=== PATIENT | male | born 1935 | race Caucasian/White ===

== ENCOUNTER 2017-07-17 17:43 | Inpatient (IN) ==
--- NOTE | 2017-07-17 18:31 | Emergency Department Report ---
Fall HPI - General Chief Complaint: Fall Stated Complaint: fall Time Seen by Provider: 07/17/17 18:22 Source: patient, family, EMS Mode of arrival: EMS Limitations: no limitations - History of Present Illness HPI Narrative: Patient is a 81-year-old male presents the ER for evaluation of right hip pain. Patient was going down stairs, on the last stair he missed and fell forward landing on his right hip. Patient did not his head, having no neck or back pain. Patient did however have immediate right hip pain EMS was called patient was brought to the ER for evaluation MD complaint: fall Fall from: down stairs (#) (1) Place fall occurred: home Loss of consciousness: none Prolonged down time: no Symptoms prior to fall: none Context: other (missed step) Location of injury: pelvis - Related Data Home Medications Medication Instructions Recorded Confirmed Amlodipine [Norvasc] 10 mg PO DAILY 07/17/17 07/17/17 Aspirin [Adult Low Dose Aspirin EC] 81 mg PO DAILY 07/17/17 07/17/17 Fenofibrate Nanocrystallized 48 mg PO DAILY 07/17/17 07/17/17 [Fenofibrate] Finasteride [Proscar] 5 mg PO HS 07/17/17 07/17/17 Rosuvastatin [Crestor] 5 mg PO HS 07/17/17 07/17/17 Warfarin [Coumadin] 2 mg PO .QOD 07/17/17 07/17/17 Warfarin [Coumadin] 3 mg PO .QOD 07/17/17 07/17/17 Allergies Allergy/AdvReac Type Severity Reaction Status Date / Time ezetimibe Allergy Unknown Verified 07/17/17 18:05 simvastatin Allergy Unknown Verified 07/17/17 18:05 Review of Systems Constitutional: Denies: fever, chills, weakness Eyes: Denies: eye pain, eye discharge ENT: Denies: throat pain, dental pain Cardiovascular: Denies: chest pain, palpitations, dyspnea on exertion Respiratory: Denies: cough, dyspnea, wheezes Gastrointestinal: Denies: abdominal pain, nausea, vomiting, diarrhea Genitourinary: Denies: urgency, dysuria, frequency Musculoskeletal: Reports: as per HPI. Denies: back pain Endocrine: Denies: fatigue Hematological/Lymphatic: Denies: easy bleeding PFSH Medical History Updates: Atrial fibrillation. Hypertension. BPH. Hypercholesterolemia Physical Exam - Limitations Limitations: no limitations - General General appearance: alert, in no apparent distress - Eye Eye exam: Present: PERRL, EOMI - ENT ENT exam: Present: normal oropharynx, TM's normal bilaterally - Neck Neck exam: Present: full ROM, trachea midline. Absent: tenderness - Chest Chest inspection: Present: symmetric chest wall rise. Absent: tenderness - Respiratory Respiratory exam: Present: normal lung sounds bilaterally. Absent: respiratory distress, wheezes, stridor - Cardiovascular Cardiovascular exam: Present: regular rate, irregular rhythm, normal heart sounds - Abdominal Exam Abdominal exam: Present: soft, normal bowel sounds. Absent: distention, tenderness - Back Exam Back exam: Present: full ROM. Absent: tenderness, CVA tenderness (R), CVA tenderness (L), muscle spasm - Skin Skin exam: Present: warm, dry - Neurological Exam Neurological exam: Present: alert, oriented X3 - Psychiatric Psychiatric exam: Present: normal affect, normal mood Course Vital Signs Temperature 98.2 F 07/17/17 17:51 Pulse Rate 64 07/17/17 17:51 Respiratory Rate 19 07/17/17 17:51 Blood Pressure 135/77 07/17/17 17:51 Pulse Oximetry 95 07/17/17 17:51 Temperature 98.2 F 07/17/17 17:51 Pulse Rate 64 07/17/17 17:51 Respiratory Rate 19 07/17/17 17:51 Blood Pressure 135/77 07/17/17 17:51 Pulse Oximetry 95 07/17/17 17:51 Fall - [facility] Narrative Medical decision making narrative: Patient family request Dr. Ferreira Discuss case with Dr. Ferreira, reviewed laboratories, have hospital service admit he will operate tomorrow - Medical Records Attestation: I reviewed the patient's medical records. - Lab Data Attestation: I reviewed the patient's lab results. Result diagrams: 07/17/17 18:38 07/17/17 18:38 - Radiology Data Attestation: I reviewed the patient's radiology results. Right intertrochanteric hip fracture Chest x-ray: No acute cardiopulmonary findings - EKG Data EKG #1 EKG attestation: Yes: I reviewed and interpreted this EKG. Rate: normal Rhythm: A.Fib Ectopy: PVC Interpretation: no acute changes Disposition Clinical Impression: Intertrochanteric fracture of right hip Qualifiers: Encounter type: initial encounter Fracture type: closed Fracture alignment: nondisplaced Qualified Code(s): S72.144A - Nondisplaced intertrochanteric fracture of right femur, initial encounter for closed fracture [place] [facility] [place] Condition: Stable Prescriptions: No Action Finasteride [Proscar] 5 mg PO HS Rosuvastatin [Crestor] 5 mg PO HS Fenofibrate Nanocrystallized [Fenofibrate] 48 mg PO DAILY Amlodipine [Norvasc] 10 mg PO DAILY Aspirin [Adult Low Dose Aspirin EC] 81 mg PO DAILY Warfarin [Coumadin] 3 mg PO .QOD Warfarin [Coumadin] 2 mg PO .QOD Referrals: Asa Dejesus MD [Primary Care Provider] - - Seen By: physician
--- OUTSIDE RECORDS SUMMARY | 2017-07-17 19:18 | External Medical Summary | Referral Summary ---
:1935 Author Organization [facility] Address [address] [place] [address] [place] [address] Care Team Providers Name Role Phone Asa Dejesus V Primary Care Physician Encounter VC Date(s): 07/03/16 - 07/03/16 [facility] [address] [place] [address] [place] [phone] [place] Discharge Diagnosis: BPH with obstruction/lower urinary tract symptoms Discharge Diagnosis: Elevated PSA Discharge Disposition: 01-Home or Self Care Attending Physician: Niraj Barragan MD Admitting Physician: Niraj Barragan MD Referring Physician: Asa Dejesus MD Vital Signs Most recent to oldest [Reference Range]: 1 Blood Pressure [90-140/60-90 mmHg] 122/72 mmHg (07/03/16 3:39 PM) Problem List Condition Effective Dates Status Health Status Informant Episode acute renal failure due to 08/01/09 - 02/19/14 Resolved NSAID+JENNIFER(Confirmed) Atrial fibrillation Active (disorder)(Confirmed) Benign essential hypertension Active (disorder)(Confirmed) Hx gross bladder < 02/16/15 Resolved trabeculation(Confirmed) BPH with obstruction/lower urinary Active tract symptoms(Confirmed) CKD (chronic kidney Active disease)(Confirmed) Chronic kidney disease, stage Active 3(Confirmed) Chronic kidney disease stage 3 Resolved (disorder)(Confirmed) Ac DVT/embl low ext NOS(Confirmed) Active Blood clots - 12/1999 - 02/19/14 Resolved lungs/legs(Confirmed) Venous stasis Active dermatitis(Confirmed) Warfarin Active anticoagulation(Confirmed) 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/14 Resolved anticoagul(Confirmed)1 Hypertension(Confirmed) Resolved Hypertensive heart disease without Resolved congestive heart failure (disorder)(Confirmed) Prediabetes(Confirmed) Active Erectile dysfunction(Confirmed) < 02/19/14 Resolved Irregular heart rhythm(Confirmed) Resolved Lt lower lung nodule on CT - 12/16/06 - 02/19/14 Resolved stable(Confirmed) Mixed hyperlipidemia Active (disorder)(Confirmed) Obesity(Confirmed) < 02/16/15 Resolved patient Prostatism(Confirmed) Resolved Pure < 02/19/14 Resolved hypercholesterolemia(Confirmed) Renal insufficiency(Confirmed) Resolved Chicken pox(Confirmed) < 02/19/14 Resolved 1Coumadin use Allergies, Adverse Reactions, Alerts Substance Reaction Severity Status NSAIDs Active simvastatin Active statins1 Active 1Previous intolerance of simvastatin, but he is tolerating rosuvastatin without problems. Medications amLODIPine 10 mg oral tablet See Instructions, TAKE ONE TABLET BY MOUTH DAILY, # 90 tabs, 1 Refill(s), eRx: [facility] #[id number] Start Date: 04/11/16 Status: Orderedaspirin 81 mg oral tablet 1 tabs, Oral, Daily, # 30 tabs, 0 Refill(s) Start Date: 07/11/13 Status: Orderedfenofibrate 48 mg oral tablet See Instructions, TAKE ONE TABLET BY MOUTH DAILY, # 30 tabs, 5 Refill(s), eRx: [facility] #[id number] Start Date: 05/03/16 Status: Orderedfinasteride 5 mg oral tablet See Instructions, TAKE ONE TABLET BY MOUTH EVERY NIGHT AT BEDTIME, # 30 tabs, 5 Refill(s), eRx: [facility] #[id number], TAKE ONE TABLET BY MOUTH EVERY NIGHT AT BEDTIME Start Date: 10/02/15 Status: OrderedMiscellaneous DME DME Item ORTHOTIC INSERTS FOR SHOES, See Instructions, # 2 Each, 0 Refill(s), Supply Start Date: 10/20/15 Status: Orderedrosuvastatin 5 mg oral tablet See Instructions, TAKE ONE TABLET BY MOUTH DAILY, # 30 tabs, 5 Refill(s), eRx: [facility] #[id number] Start Date: 02/29/16 Status: Orderedtamsulosin 0.4 mg oral capsule 0.4 mg 1 caps, Oral, Daily, # 30 caps, 11 Refill(s), Pharmacy: [facility] #[id number], 1 caps OralDaily,x30 days Start Date: 07/03/16 Stop Date: 06/28/17 Status: OrderedVoltaren 1% topical gel 1 barb, Topical, QID, as needed for pain, Use sparingly, be aware of increased bleeding risk, # 100 g, 0 Refill(s), Pharmacy: [facility] #[id number] Start Date: 04/17/16 Status: Orderedwarfarin 2 mg oral tablet See Instructions, TAKE 1 1/2 TABLETS (3MG) BY MOUTH THREE DAYS PER WEEK AND 1 TABLET (2MG) FOUR DAYSPER WEEK, # 102 tabs, eRx: [facility] #[id number] Start Date: 06/28/16 Status: Ordered Results No data available for this section Immunizations Given and Recorded Vaccine Date Status Refusal Reason tetanus/diphth/pertuss (Tdap) adult/adol 09/25/12 Recorded influenza virus vaccine, inactivated 10/31/15 Given influenza virus vaccine, inactivated 11/11/13 Recorded influenza virus vaccine, inactivated 10/27/12 Recorded influenza virus vaccine, live 10/27/12 Given influenza virus vaccine, live 11/27/11 Given pneumococcal 13-valent conjugate vaccine 02/22/16 Given pneumococcal 23-polyvalent vaccine 12/26/98 Recorded tetanus-diphth toxoids (Td) adult/adol 06/01/04 Given zoster vaccine live 12/04/10 Given Procedures Procedure Date Related Diagnosis Body Site Exostectomy Lt calcaneus [address] tendon Lt calcaneus 2011 Repair PB tendon Lt calcaneus 2011 L TKA [facility] 03/19/10 Colonoscopy 09/24/07 Cystoscopy and hydrodistension 01/14/07 Atrial fib. - conversion Gall Bladder Knee replacement1 1Left knee Social History Social History Type Response Smoking Status Never smoker Assessment and Plan Extracted from: Title: Office Visit Note Author: Niraj Barragan MD Date: 07/03/16 Assessment/Plan 80 yoM with BPH and elvated PSA. 1.BPH with obstruction/lower urinary tract symptoms Discussed the pathophysiology of BPH and treatment options. Cont finasteride. Will start FLomax. Explained the side effects. RTC in 6 months for uroflow PVR. 2.Elevated PSA His rise in PSA is likely due to stopping his Finasteride for 1-2 months. Discussed the screening guidelines for prostate cancer. Current AUA guidelines recommend against screening past the age of 70. Discussed the prevalence of prostate cancer. Will schedule for annual screening with PSA And AMINA in 1 year. Ordered: Prostate Specific Antigen
--- OUTSIDE RECORDS SUMMARY | 2017-07-17 19:18 | External Medical Summary | Referral Summary ---
:1935 Author Organization [facility] [address] [place] [address] Care Team Providers Name Role Phone Dmitry Rosenberg Primary Care Physician Encounter VC Date(s): 08/24/14 - 08/24/14 [facility], [address] [place] [phone] [place] Discharge Diagnosis: Atrial fibrillation Discharge Diagnosis: Mixed dyslipidemia Discharge Diagnosis: Chronic kidney disease Discharge Diagnosis: Hypertension, essential Discharge Disposition: 01-Home or Self Care Attending Physician: Seymour Goodrich MD Admitting Physician: Seymour Goodrich MD Referring Physician: Dmitry Rosenberg MD Vital Signs Most recent to oldest [Reference Range]: 1 Peripheral Pulse Rate [60-100 bpm] 72 bpm (08/24/14 2:41 PM) Blood Pressure [90-140/60-90 mmHg] 122/80 mmHg (08/24/14 2:41 PM) Problem List Condition Effective Dates Status Health Status Informant Episode acute renal failure due to 08/01/09 Active NSAID+JENNIFER(Confirmed) Instability of right ankle Active joint(Confirmed) Atrial fibrillation Active (disorder)(Confirmed) Benign essential hypertension Active (disorder)(Confirmed) Hx gross bladder Active trabeculation(Confirmed) Chronic kidney disease stage 3 Active (disorder)(Confirmed) Ac DVT/embl low ext NOS(Confirmed) Active Blood clots - lungs/legs(Confirmed) 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)1 Active Hypertension(Confirmed) Resolved Hypertensive heart disease without Active congestive heart failure (disorder)(Confirmed) Prediabetes(Confirmed) Active Erectile dysfunction(Confirmed) Active Irregular heart rhythm(Confirmed) Resolved Lt lower lung nodule on CT - 12/16/06 Active stable(Confirmed) Painless microscopic Active hematuria(Confirmed)2 Mixed hyperlipidemia Active (disorder)(Confirmed) Obesity(Confirmed) Active patient Obesity(Confirmed) Active patient Prostatism(Confirmed) Resolved Pure hypercholesterolemia(Confirmed) Active Renal insufficiency(Confirmed) Resolved Chicken pox(Confirmed) Active 1Coumadin use2hx of multiple bleeding prostatic varicose veins Allergies, Adverse Reactions, Alerts Substance Reaction Severity Status NSAIDs Active simvastatin Active statins Active Medications amLODIPine 10 mg oral tablet 10 mg 1 tabs, Oral, Daily, # 90 tabs, 1 Refill(s), Pharmacy: [facility] # [id number], 1 tabs Oral Daily Start Date: 10/10/14 Status: Orderedaspirin 81 mg oral tablet 1 tabs, Oral, Daily, # 30 tabs, 0 Refill(s) Start Date: 07/11/13 Status: OrderedCoumadin 2 mg oral tablet See Instructions, TAKE ONE AND ONE-HALF TABLET BY MOUTH EVERY DAY OR DIRECTED , # 180 tabs, 9 Refill(s), eRx: [facility] #[id number], TAKE ONE AND ONE-HALF TABLET BY MOUTH EVERY DAY OR DIRECTED Start Date: 02/07/14 Status: OrderedCrestor 5 mg oral tablet See Instructions, TAKE ONE TABLET BY MOUTH DAILY, # 30 tabs, eRx: [facility] #[id number], TAKE ONETABLET BY MOUTH DAILY Start Date: 11/17/14 Status: OrderedProscar 5 mg oral tablet See Instructions, TAKE ONE TABLET BY MOUTH EVERY NIGHT AT BEDTIME, # 30 tabs, 4 Refill(s), eRx: [facility] #[id number], TAKE ONE TABLET BY MOUTH EVERY NIGHT AT BEDTIME Start Date: 10/31/14 Status: OrderedTriCor 48 mg oral tablet See Instructions, TAKE ONE TABLET BY MOUTH DAILY FOR HIGH TRIGLYCERIDES., # 30 tabs, 2 Refill(s), eRx: [facility] #[id number], TAKE ONE TABLET BY MOUTH DAILY FOR HIGH TRIGLYCERIDES. Start Date: 09/23/14 Status: Ordered Results No data available for this section Immunizations Vaccine Date Refusal Reason tetanus/diphth/pertuss (Tdap) adult/adol 09/25/12 influenza virus vaccine, inactivated 11/11/13 influenza virus vaccine, inactivated 10/27/12 influenza virus vaccine, live 10/27/12 influenza virus vaccine, live 11/27/11 pneumococcal 23-polyvalent vaccine 12/26/98 tetanus-diphth toxoids (Td) adult/adol 06/01/04 zoster vaccine live 12/04/10 Procedures Procedure Date Related Diagnosis Body Site Exostectomy Lt calcaneus [address] tendon Lt calcaneus 2011 Repair PB tendon Lt calcaneus 2011 L TKA [facility] 03/19/10 Colonoscopy 09/24/07 Cystoscopy and hydrodistension 01/14/07 Atrial fib. - conversion Gall Bladder Knee replacement1 1Left knee Social History Social History Type Response Smoking Status Never smoker Assessment and Plan Extracted from: Title: Office Visit Note Author: Seymour Goodrich MD Date: 08/24/14 Assessment/Plan 1.Atrial fibrillation 2.Mixed dyslipidemia 3.Hypertension, essential 4.Chronic kidney disease Discussion: Overall, this gentleman seems to be getting along very well and I didn't make any changes in his therapy. I advised him to have a follow-up visit in 6-12 months or any time as necessary. I advised him that I agree with his primary care physician.
--- OUTSIDE RECORDS SUMMARY | 2017-07-17 19:18 | External Medical Summary | Referral Summary ---
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 Active Hypertension(Confirmed) Resolved Hypertensive heart [...] Daily, # 90 tabs, 1 Refill(s), Pharmacy: [facility] # [id number], 1 tabs Oral Daily Start Date: 10/10/14 Status: Orderedaspirin 81 mg oral tablet 1 tabs, Oral, Daily, # 30 tabs, 0 Refill(s) Start Date: 07/11/13 Status: OrderedCoumadin 2 mg oral tablet See Instructions, TAKE ONE AND ONE-HALF TABLET BY MOUTH EVERY DAY OR DIRECTED , # 180 tabs, 9 Refill(s), eRx: [facility] #[id number], TAKE ONE AND ONE-HALF TABLET BY MOUTH EVERY DAY OR DIRECTED Start Date: 02/07/14 Status: OrderedCrestor 5 mg oral tablet See Instructions, TAKE ONE TABLET BY MOUTH DAILY, # 30 tabs, eRx: [facility] #[id number], TAKE ONETABLET BY MOUTH DAILY Start Date: 11/17/14 Status: OrderedProscar 5 mg oral tablet See Instructions, TAKE ONE TABLET BY MOUTH EVERY NIGHT AT BEDTIME, # 30 tabs, 4 Refill(s), eRx: [facility] #[id number], TAKE ONE TABLET BY MOUTH EVERY NIGHT AT BEDTIME Start Date: 10/31/14 Status: OrderedTriCor 48 mg oral tablet See Instructions, TAKE ONE TABLET BY MOUTH DAILY FOR HIGH TRIGLYCERIDES., # 30 tabs, 2 Refill(s), eRx: [facility] #[id number], TAKE ONE TABLET BY MOUTH DAILY FOR [...] PB tendon Lt calcaneus 2011 L TKA [facility] 03/19/10 Colonoscopy 09/24/07 Cystoscopy and hydrodistension [...]
--- OUTSIDE RECORDS SUMMARY | 2017-07-17 19:18 | External Medical Summary | Referral Summary ---
:1935 Author Organization [facility] [address] [place] [address] Care Team Providers Name Role Phone Asa Dejesus V Primary Care Physician Encounter VC Date(s): 10/02/16 - 10/02/16 [facility] [address] [place] [address] [place] [phone] Discharge Diagnosis: BPH with obstruction/lower urinary tract symptoms Discharge Diagnosis: Venous stasis dermatitis Discharge Diagnosis: CKD (chronic kidney disease) Discharge Diagnosis: Atrial fibrillation Discharge Diagnosis: Mixed hyperlipidemia Discharge Disposition: 01-Home or Self Care Attending Physician: Seymour Goodrich MD Admitting Physician: Seymour Goodrich MD Referring Physician: Asa Dejesus MD Vital Signs Most recent to oldest [Reference Range]: 1 Peripheral Pulse Rate [60-100 bpm] 68 bpm (10/02/16 11:15 AM) Blood Pressure [90-140/60-90 mmHg] 110/70 mmHg (10/02/16 11:15 AM) Problem List Condition Effective Dates Status Health [...] Venous stasis Active dermatitis(Confirmed) Warfarin Active anticoagulation(Confirmed) jail use < 1/10/15 Resolved anticoagul(Confirmed)1 Hypertension(Confirmed) Resolved Hypertensive heart disease [...] DAILY, # 90 tabs, 1 Refill(s), eRx: [facility] #[id number] Start Date: 04/11/16 Status: Orderedaspirin 81 mg oral tablet 1 tabs, Oral, Daily, # 30 tabs, 0 Refill(s) Start Date: 07/11/13 Status: Orderedfenofibrate 48 mg oral tablet See Instructions, TAKE ONE TABLET BY MOUTH DAILY, # 30 tabs, 5 Refill(s), eRx: [facility] #[id number] Start Date: 05/03/16 Status: Orderedfinasteride 5 mg oral tablet 5 mg 1 tabs, Oral, Daily, # 30 tabs, 6 Refill(s), Pharmacy: [facility] # [id number], 1 tabs Oral Daily Start Date: 08/05/16 Status: OrderedMiscellaneous DME DME Item ORTHOTIC INSERTS FOR SHOES, See Instructions, # 2 Each, 0 Refill(s), Supply Start Date: 10/20/15 Status: Orderedrosuvastatin 5 mg oral tablet See Instructions, TAKE ONE TABLET BY MOUTH DAILY, # 30 tabs, 5 Refill(s), eRx: [facility] #[id number] Start Date: 02/29/16 Status: Orderedtamsulosin 0.4 mg oral capsule 0.4 mg 1 caps, Oral, Daily, # 30 caps, 11 Refill(s), Pharmacy: [facility] #[id number], 1 caps OralDaily,x30 days Start Date: 07/03/16 Stop Date: 06/28/17 Status: OrderedVoltaren 1% topical gel 1 barb, Topical, QID, as needed for pain, Use sparingly, be aware of increased bleeding risk, # 100 g, 0 Refill(s), Pharmacy: [facility] #[id number] Start Date: 04/17/16 Status: Orderedwarfarin 2 mg oral tablet See Instructions, TAKE 1 1/2 TABLETS (3MG) BY MOUTH 4 DAYS PER WEEK AND 2 TABLET 3 DAYS PER WEEK, #102 tabs, 0 Refill(s), Pharmacy: [facility] # [id number], TAKE 1 1/2 TABLETS (3MG) BY MOUTH 4 DAYS PER WEEK AND 2 TABLET 3 DAYS PER WEEK Start Date: 09/16/16 Status: Ordered Immunizations Given and Recorded Vaccine Date Status Refusal Reason pneumococcal 13-valent conjugate vaccine 02/22/16 Given influenza virus vaccine, inactivated 10/31/15 Given influenza virus vaccine, inactivated 11/11/13 Recorded influenza virus vaccine, inactivated 10/27/12 Recorded influenza virus vaccine, live 10/27/12 Given influenza virus vaccine, live 11/27/11 Given tetanus/diphth/pertuss (Tdap) adult/adol 09/25/12 Recorded zoster vaccine live 12/04/10 Given tetanus-diphth toxoids (Td) adult/adol 06/01/04 Given pneumococcal 23-polyvalent vaccine 12/26/98 Recorded Procedures Procedure Date Related Diagnosis Body Site Exostectomy Lt calcaneus [address] tendon Lt calcaneus 2011 Repair PB tendon Lt calcaneus 2011 L TKA [facility] 03/19/10 Colonoscopy 09/24/07 Cystoscopy and hydrodistension 01/14/07 Atrial fib. - conversion Gall Bladder Knee replacement1 1Left knee Social History Social History Type Response Smoking Status Never smoker Assessment and Plan Extracted from: Title: Office Visit Note Author: Seymour Goodrich MD Date: 10/02/16 1.Atrial fibrillation 2.BPH with obstruction/lower urinary tract symptoms 3.CKD (chronic kidney disease) 4.Mixed hyperlipidemia 5.Venous stasis dermatitis Discussion:I didn't make any changes in his therapy. He is to see me again in6 months which is his preference. He is to call any time if difficulty. Overall, this man has had an extremely favorableclinical course.
--- OUTSIDE RECORDS SUMMARY | 2017-07-17 19:18 | External Medical Summary | Referral Summary ---
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 Active Hypertension(Confirmed) Resolved Hypertensive heart [...] Daily, # 90 tabs, 1 Refill(s), Pharmacy: [facility] # [id number], 1 tabs Oral Daily Start Date: 10/10/14 Status: Orderedaspirin 81 mg oral tablet 1 tabs, Oral, Daily, # 30 tabs, 0 Refill(s) Start Date: 07/11/13 Status: OrderedCoumadin 2 mg oral tablet See Instructions, TAKE ONE AND ONE-HALF TABLET BY MOUTH EVERY DAY OR DIRECTED , # 180 tabs, 9 Refill(s), eRx: [facility] #[id number], TAKE ONE AND ONE-HALF TABLET BY MOUTH EVERY DAY OR DIRECTED Start Date: 02/07/14 Status: OrderedCrestor 5 mg oral tablet See Instructions, TAKE ONE TABLET BY MOUTH DAILY, # 30 tabs, eRx: [facility] #[id number], TAKE ONETABLET BY MOUTH DAILY Start Date: 11/17/14 Status: OrderedProscar 5 mg oral tablet See Instructions, TAKE ONE TABLET BY MOUTH EVERY NIGHT AT BEDTIME, # 30 tabs, 4 Refill(s), eRx: [facility] #[id number], TAKE ONE TABLET BY MOUTH EVERY NIGHT AT BEDTIME Start Date: 10/31/14 Status: OrderedTriCor 48 mg oral tablet See Instructions, TAKE ONE TABLET BY MOUTH DAILY FOR HIGH TRIGLYCERIDES., # 30 tabs, 2 Refill(s), eRx: [facility] #[id number], TAKE ONE TABLET BY MOUTH DAILY FOR [...] PB tendon Lt calcaneus [address] [facility] 03/19/10 Colonoscopy 09/24/07 Cystoscopy and [...]
--- OUTSIDE RECORDS SUMMARY | 2017-07-17 19:18 | External Medical Summary | Referral Summary ---
:1935 Author Organization [facility] Address [address] [place] [address] [place] [address] Care Team Providers Name Role Phone Asa Dejesus V Primary Care Physician Encounter VC Date(s): 09/13/15 - 09/13/15 [facility] [place] [address] [place] [address] [place] [phone] [place] Discharge Disposition: 01-Home or Self Care Attending Physician: Seymour Goodrich MD Admitting Physician: Seymour Goodrich MD Referring Physician: Asa Dejesus MD Vital Signs Most recent to oldest [Reference Range]: 1 Peripheral Pulse Rate [60-100 bpm] 64 bpm (09/13/15 9:48 AM) Blood Pressure [90-140/60-90 mmHg] 100/70 mmHg (09/13/15 9:48 AM) Problem List Condition Effective Dates Status Health Status Informant Episode acute renal failure due to 08/01/09 - 02/19/14 Resolved NSAID+JENNIFER(Confirmed) Instability of right ankle Active joint(Confirmed) Atrial fibrillation Active (disorder)(Confirmed) Benign essential hypertension Active (disorder)(Confirmed) Chronic kidney disease, stage Active 3(Confirmed) Chronic kidney disease stage 3 Resolved (disorder)(Confirmed) Ac DVT/embl low ext NOS(Confirmed) Active Blood clots - 12/1999 - 02/19/14 Resolved lungs/legs(Confirmed) Warfarin Active anticoagulation(Confirmed) assisted use Active anticoagul(Confirmed)1 Hypertension(Confirmed) Resolved Hypertensive heart disease without Active congestive heart failure (disorder)(Confirmed) Prediabetes(Confirmed) Active Erectile dysfunction(Confirmed) Active Irregular heart rhythm(Confirmed) Resolved Lt lower lung nodule on CT - 12/16/06 - 02/19/14 Resolved stable(Confirmed) Mixed hyperlipidemia Active (disorder)(Confirmed) Prostatism(Confirmed) Resolved Pure Active hypercholesterolemia(Confirmed) Renal insufficiency(Confirmed) Resolved Chicken pox(Confirmed) < 02/19/14 Resolved 1Coumadin use Allergies, Adverse Reactions, Alerts Substance Reaction Severity Status NSAIDs Active simvastatin Active statins1 Active 1Previous intolerance of simvastatin, but he is tolerating rosuvastatin without problems. Medications amLODIPine 10 mg oral tablet 10 mg 1 tabs, Oral, Daily, # 90 tabs, 1 Refill(s), Pharmacy: [facility] # [id number], 1 tabs Oral Daily Start Date: 02/23/15 Status: Orderedaspirin 81 mg oral tablet 1 tabs, Oral, Daily, # 30 tabs, 0 Refill(s) Start Date: 07/11/13 Status: OrderedCrestor 5 mg oral tablet See Instructions, TAKE ONE TABLET BY MOUTH DAILY, # 30 tabs, 3 Refill(s), eRx: [facility] #[id number], TAKE ONE TABLET BY MOUTH DAILY Start Date: 05/22/15 Status: Orderedfenofibrate 48 mg oral tablet See Instructions, TAKE ONE TABLET BY MOUTH DAILY FOR HIGH TRIGLYCERIDES., # 30 tabs, 3 Refill(s), eRx: [facility] #[id number], TAKE ONE TABLET BY MOUTH DAILY FOR HIGH TRIGLYCERIDES. Start Date: 05/22/15 Status: Orderedfinasteride 5 mg oral tablet See Instructions, TAKE ONE TABLET BY MOUTH EVERY NIGHT AT BEDTIME, # 30 tabs, 2 Refill(s), eRx: [facility] #[id number], TAKE ONE TABLET BY MOUTH EVERY NIGHT AT BEDTIME Start Date: 08/31/15 Status: Orderedwarfarin 2 mg oral tablet See Instructions, TAKE 2 MG (1 TABLET) EVERY OTHER DAY, ALTERNATING WITH 3 MG (1 -1/2 TABLETS) ON THEALTERNATE DAY., # 180 tabs, eRx: [facility] #[id number], TAKE 2 MG (1 TABLET) EVERY OTHER DAY, ALTERNATING WITH 3 MG (1-1/2 TABLETS) ON THE ALTERNAT... Start Date: 07/17/15 Status: Ordered Results No data available for [...] PB tendon Lt calcaneus 2011 L TKA [facility] 03/19/10 Colonoscopy 09/24/07 Cystoscopy and hydrodistension 01/14/07 Atrial fib. - conversion Gall Bladder Knee replacement1 1Left knee Social History Social History Type Response Smoking Status Never smoker Assessment and Plan Extracted from: Title: Ambulatory Patient Education Author: Seymour Goodrich MD Date: 09/13/15 Cardiovascular Atrial Fibrillation Atrial fibrillation is a type of irregular heart rhythm (arrhythmia). During atrial fibrillation, the upper chambers of the heart (atria) quiver continuously in a chaotic pattern. This causes an irregular and often rapid heart rate. Atrial fibrillation is the result of the heart becoming overloaded with disorganized signals that tell it to beat. These signals are normally released one at a time by a part of the right atrium called the sinoatrial node. They then travel from the atria to the lower chambers of the heart (ventricles), causing the atria and ventricles to contract and pump blood as they pass. In atrial fibrillation, pa rts of the atria outside of the sinoatrial node also release these signals. This results in two problems. First, the atria receive so many signals that they do not have time to fully contract. Second, t he ventricles, which can only receive one signal at a time, beat irregularly and out of rhythm with the atria. There are three types of atrial fibrillation: Paroxysmal. Paroxysmal atrial fibrillation starts suddenly and stops on its own within a week. Persistent. Persistent atrial fibrillation lasts for more than a week. It may stop on its own or with treatment. Permanent. Permanent atrial fibrillation does not go away. Episodes of atrial fibrillation may lead to permanent atrial fibrillation. Atrial fibrillation can prevent your heart from pumping blood normally. It increases your risk of stroke and can lead to heart failure. CAUSES Heart conditions, including a heart attack, heart failure, coronary artery disease, and heart valve conditions. Inflammation of the sac that surrounds the heart (pericarditis). Blockage of an artery in the lungs (pulmonary embolism). Pneumonia or other infections. Chronic lung disease. Thyroid problems, especially if the thyroid is overactive ( hyperthyroidism). Caffeine, excessive alcohol use, and use of some illegal drugs. Use of some medicines, including certain decongestants and diet pills. Heart surgery. defects. Sometimes, no cause can be found. When this happens, the atrial fibrillation is called lone atrial fibrillation. The risk of complications from atrial fibrillation increases if you have lone atrial fibrillation and you are age 60 years or older. RISK FACTORS Heart failure. Coronary artery disease. Diabetes mellitus. High blood pressure (hypertension). Obesity. Other arrhythmias. Increased age. SIGNS AND SYMPTOMS A feeling that your heart is beating rapidly or irregularly. A feeling of discomfort or pain in your chest. Shortness of breath. Sudden light-headedness or weakness. Getting tired easily when exercising. Urinating more often than normal (mainly when atrial fibrillation first begins). In paroxysmal atrial fibrillation, symptoms may start and suddenly stop. DIAGNOSIS Your health care provider may be able to detect atrial fibrillation when taking your pulse. Your health care provider may have you take a test called an ambulatory electrocardiogram (ECG). An ECG record s your heartbeat patterns over a 24-hour period. You may also have other tests , such as: Transthoracic echocardiogram (TTE). During echocardiography, sound waves are used to evaluate how blood flows through your heart. Transesophageal echocardiogram (PILAR). Stress test. There is more than one type of stress test. If a stress test is needed, ask your health care provider about which type is best for you. Chest X-ray exam. Blood tests. Computed tomography (CT). TREATMENT Treatment may include: Treating any underlying conditions. For example, if you have an overactive thyroid, treating the condition may correct atrial fibrillation. Taking medicine. Medicines may be given to control a rapid heart rate or to prevent blood clots, heart failure, or a stroke. Having a procedure to correct the rhythm of the heart: Electrical cardioversion. During electrical cardioversion, a controlled , low-energy shock is delivered to the heart through your skin. If you have chest pain, very low blood pressure, or sudden h eart failure, this procedure may need to be done as an emergency. Catheter ablation. During this procedure, heart tissues that send the signals that cause atrial fibrillation are destroyed. Surgical ablation. During this surgery, thin lines of heart tissue that carry the abnormal signals are destroyed. This procedure can either be an open- heart surgery or a minimally invasive surger y. With the minimally invasive surgery, small cuts are made to access the heart instead of a large opening. Pulmonary venous isolation. During this surgery, tissue around the veins that carry blood from the lungs (pulmonary veins) is destroyed. This tissue is thought to carry the abnormal signals. HOME CARE INSTRUCTIONS Take medicines only as directed by your health care provider. Some medicines can make atrial fibrillation worse or recur. If blood thinners were prescribed by your health care provider, take them exactly as directed. Too much blood-thinning medicine can cause bleeding. If you take too little, you will not have the n eeded protection against stroke and other problems. Perform blood tests at home if directed by your health care provider. Perform blood tests exactly as directed. Quit smoking if you smoke. Do not drink alcohol. Do not drink caffeinated beverages such as coffee, soda, and some teas. You may drink decaffeinated coffee, soda, or tea. Maintain a healthy weight.Do not use diet pills unless your health care provider approves. They may make heart problems worse. Follow diet instructions as directed by your health care provider. Exercise regularly as directed by your health care provider. Keep all follow-up visits as directed by your health care provider. This is important. PREVENTION The following substances can cause atrial fibrillation to recur: Caffeinated beverages. Alcohol. Certain medicines, especially those used for breathing problems. Certain herbs and herbal medicines, such as those containing ephedra or ginseng. Illegal drugs, such as cocaine and amphetamines. Sometimes medicines are given to prevent atrial fibrillation from recurring. Proper treatment of any underlying condition is also important in helping prevent recurrence. SEEK MEDICAL CARE IF: You notice a change in the rate, rhythm, or strength of your heartbeat. You suddenly begin urinating more frequently. You tire more easily when exerting yourself or exercising. SEEK IMMEDIATE MEDICAL CARE IF: You have chest pain, abdominal pain, sweating, or weakness. You feel nauseous. You have shortness of breath. You suddenly have swollen feet and ankles. You feel dizzy. Your face or limbs feel numb or weak. You have a change in your vision or speech. MAKE SURE YOU: Understand these instructions. Will watch your condition. Will get help right away if you are not doing well or get worse. This information is not intended to replace advice given to you by your health care provider. Make sure you discuss any questions you have with your health care provider. Document Released: 01/27/2006 Document Revised: 02/17/2015 Document Reviewed: 03/09/2013 Exit[employer] Patient Information 2016 [employer], [facility]. No follow up information was provided.
--- OUTSIDE RECORDS SUMMARY | 2017-07-17 19:18 | External Medical Summary | Referral Summary ---
:1935 Author Organization [facility] [place] [address] Care Team Providers Name Role Phone Asa Dejesus V Primary Care Physician Encounter VC SHAYY [id number] Date(s): 04/17/16 - 04/17/16 [facility] [place] [phone] Discharge Diagnosis: Osteoarthritis of both knees Discharge Diagnosis: Infected sebaceous cyst Discharge Disposition: 01-Home or Self Care Attending Physician: Asa Dejesus MD Admitting Physician: Asa Dejesus MD Vital Signs Most recent to oldest [Reference Range]: 1 Peripheral Pulse Rate [60-100 bpm] 65 bpm (04/17/16 9:44 AM) Respiratory Rate [14-20 br/min] 18 br/min (04/17/16 9:44 AM) Blood Pressure [90-140/60-90 mmHg] 120/70 mmHg (04/17/16 9:44 AM) SpO2 97 % (04/17/16 9:44 AM) Problem List Condition Effective Dates Status [...] Venous stasis Active dermatitis(Confirmed) Warfarin Active anticoagulation(Confirmed) [facility] use < 02/19/14 Resolved anticoagul(Confirmed)1 Hypertension(Confirmed) Resolved [...] DAILY, # 90 tabs, 1 Refill(s), eRx: [facility] #[id number] Start Date: 04/11/16 Status: Orderedaspirin 81 mg oral tablet 1 tabs, Oral, Daily, # 30 tabs, 0 Refill(s) Start Date: 07/11/13 Status: Orderedcephalexin 500 mg oral tablet 500 mg 1 tabs, Oral, QID, X 7 days, # 28 tabs, 0 Refill(s), Pharmacy: [facility] #[id number], 1 tabs Oral QID,x7 days Start Date: 04/17/16 Stop Date: 04/24/16 Status: Orderedfenofibrate 48 mg oral tablet 48 mg 1 tabs, Oral, Daily, # 30 tabs, 6 Refill(s), Pharmacy: [facility] # [id number], 1 tabs Oral Daily Start Date: 09/29/15 Status: Orderedfinasteride 5 mg oral tablet See Instructions, TAKE ONE TABLET BY MOUTH EVERY NIGHT AT BEDTIME, # 30 tabs, 5 Refill(s), eRx: [facility] #[id number], TAKE ONE TABLET BY MOUTH EVERY NIGHT AT BEDTIME Start Date: 10/02/15 Status: OrderedMiscellaneous DME DME Item ORTHOTIC INSERTS FOR SHOES, See Instructions, # 2 Each, 0 Refill(s), Supply Start Date: 10/20/15 Status: Orderedrosuvastatin 5 mg oral tablet See Instructions, TAKE ONE TABLET BY MOUTH DAILY, # 30 tabs, 5 Refill(s), eRx: [facility] #[id number] Start Date: 02/29/16 Status: OrderedVoltaren 1% topical gel 1 barb, Topical, QID, as needed for pain, Use sparingly, be aware of increased bleeding risk, # 100 g, 0 Refill(s), Pharmacy: [facility] #[id number] Start Date: 04/17/16 Status: Orderedwarfarin 2 mg oral tablet See Instructions, TAKE 1 1/2 TABLETS (3MG) BY MOUTH THREE DAYS PER WEEK AND 1 TABLET (2MG) FOUR DAYSPER WEEK, # 180 tabs, eRx: [facility] #[id number] Start Date: 04/11/16 Status: Ordered Results No data available for [...] Procedures Procedure Date Related Diagnosis Body Site Incision and drainage of abscess (eg, carbuncle, 04/17/16 suppurative hidradenitis, cutaneous or subcutaneous abscess, cyst, furuncle, or paronychia); simple or single Exostectomy Lt calcaneus [address] tendon Lt calcaneus 2011 Repair PB tendon Lt calcaneus 2011 L TKA [facility] 03/19/10 Colonoscopy 09/24/07 Cystoscopy and hydrodistension 01/14/07 Atrial fib. - conversion Gall Bladder Knee replacement1 1Left knee Social History Social History Type Response Smoking Status Never smoker Assessment and Plan Extracted from: Title: Acute OV Author: Asa Dejesus MD Date: 04/17/16 Impression and Plan Diagnosis Infected sebaceous cyst ([id number] L72.3, Discharge, Medical). Orders Orders (Selected) Prescriptions Prescribed Voltaren 1% topical gel: 1 barb, Topical, QID, Use sparingly, be aware of increased bleeding risk, PRN: as needed for pain, 100 g, 0 Refill(s) cephalexin 500 mg oral tablet: 500 mg=1 tabs, Oral, QID, for 7 days, 28 tabs, 0 Refill(s).
--- OUTSIDE RECORDS SUMMARY | 2017-07-17 19:18 | External Medical Summary | Referral Summary ---
:1935 Author Organization [facility] Address [address] [place] [address] Care Team Providers Name Role Phone Asa Dejesus V Primary Care Physician Encounter VC Date(s): 06/18/17 - 06/18/17 [facility] [address] [place] [address] [place] Encounter Diagnosis History of BPH (Discharge Diagnosis) - 06/18/17 Nocturia (Discharge Diagnosis) - 06/18/17 Discharge Disposition: 01-Home or Self Care Attending Physician: Niraj Barragan MD Admitting Physician: Niraj Barragan MD Vital Signs Most recent to oldest [Reference Range]: 1 Respiratory Rate [14-20 br/min] 18 br/min (06/18/17 9:52 AM) Problem List Condition Effective Dates Status [...] Venous stasis Active dermatitis(Confirmed) Warfarin Active anticoagulation(Confirmed) care home use < 02/19/14 Resolved anticoagul(Confirmed)1 Hypertension(Confirmed) Resolved [...] Adverse Reactions, Alerts Substance Reaction Severity Status simvastatin Active statins1 Active NSAIDs Active 1Previous intolerance of simvastatin, but he is tolerating rosuvastatin without problems. Medications amLODIPine 10 mg oral tablet See Instructions, TAKE ONE TABLET BY MOUTH DAILY, # 90 tabs, 1 Refill(s), eRx: [facility] #[id number] Start Date: 10/21/16 Status: Orderedaspirin 81 mg oral tablet 1 tabs, Oral, Daily, # 30 tabs, 0 Refill(s) Start Date: 07/11/13 Status: Orderedfenofibrate 48 mg oral tablet See Instructions, TAKE ONE TABLET BY MOUTH DAILY, # 90 tabs, 1 Refill(s), eRx: [facility] #[id number] Start Date: 11/11/16 Status: Orderedfinasteride 5 mg oral tablet 5 mg 1 tabs, Oral, Daily, # 30 tabs, 6 Refill(s), Pharmacy: [facility] # [id number], 1 tabs Oral Daily Start Date: 08/05/16 Status: OrderedMiscellaneous DME DME Item ORTHOTIC INSERTS FOR SHOES, See Instructions, # 2 Each, 0 Refill(s), Supply Start Date: 10/20/15 Status: Orderedrosuvastatin 5 mg oral tablet See Instructions, TAKE ONE TABLET BY MOUTH DAILY, # 90 tabs, 2 Refill(s), eRx: [facility] #[id number] Start Date: 10/21/16 Status: Orderedtamsulosin 0.4 mg oral capsule See Instructions, TAKE ONE CAPSULE BY MOUTH DAILY, # 90 caps, 1 Refill(s), eRx: [facility] #[id number] Start Date: 05/08/17 Status: OrderedVoltaren 1% topical gel 1 barb, Topical, QID, as needed for pain, Use sparingly, be aware of increased bleeding risk, # 100 g, 0 Refill(s), Pharmacy: [facility] #[id number] Start Date: 04/17/16 Status: Orderedwarfarin 2 mg oral tablet See Instructions, TAKE ONE AND ONE-HALF TABLET BY MOUTH DAILY 4 DAYS PER WEEK, AND 2 TABLETS THE OTHER 3 DAYS OF THE WEEK., # 102 tabs, eRx: [facility] # [id number] Start Date: 11/25/16 Status: Ordered Immunizations Given and Recorded Vaccine [...] Procedures Procedure Date Related Diagnosis Body Site Status Exostectomy Lt calcaneus [address] tendon Lt calcaneus 2011 Completed Repair PB tendon Lt calcaneus 2011 Completed L TKA [facility] 03/19/10 Completed Colonoscopy 09/24/07 Completed Cystoscopy and hydrodistension 01/14/07 Completed Atrial fib. - conversion Completed Gall Bladder Completed Knee replacement1 Completed 1Left knee Social History Social History Type Response Smoking Status Never smoker entered on: 07/12/13
--- OUTSIDE RECORDS SUMMARY | 2017-07-17 19:18 | External Medical Summary | Referral Summary ---
:1935 Author Organization [facility] [address] [place] [address] Care Team Providers Name Role Phone Dmitry Rosenberg Primary Care Physician Encounter VC Date(s): 10/25/14 - 10/25/14 [facility] [address] [place] [address] [place] [phone] [place] Discharge Diagnosis: BPH with obstruction/lower urinary tract symptoms Discharge Disposition: 01-Home or Self Care Attending Physician: Cornell Jo JR, MD Admitting Physician: Cornell Jo JR, MD Referring Physician: Dmitry Rosenberg MD Vital Signs Most recent to oldest [Reference Range]: 1 Peripheral Pulse Rate [60-100 bpm] 80 bpm (10/25/14 8:57 AM) Blood Pressure [90-140/60-90 mmHg] 124/88 mmHg (10/25/14 8:57 AM) Problem List Condition Effective Dates Status Health Status Informant Episode acute renal failure due to 08/01/09 Active NSAID+JENNIFER(Confirmed) Instability of right ankle Active joint(Confirmed) Atrial fibrillation Active (disorder)(Confirmed) Benign essential hypertension Active (disorder)(Confirmed) Hx gross bladder Active trabeculation(Confirmed) Chronic kidney disease stage 3 Active (disorder)(Confirmed) Ac DVT/embl low ext NOS(Confirmed) Active Blood clots - lungs/legs(Confirmed) 12/1999 Active [facility] use anticoagul(Confirmed)1 Active Hypertension(Confirmed) Resolved Hypertensive heart [...] Daily, # 90 tabs, 1 Refill(s), Pharmacy: [facility] # [id number], 1 tabs Oral Daily Start Date: 10/10/14 Status: Orderedaspirin 81 mg oral tablet 1 tabs, Oral, Daily, # 30 tabs, 0 Refill(s) Start Date: 07/11/13 Status: OrderedCoumadin 2 mg oral tablet See Instructions, TAKE ONE AND ONE-HALF TABLET BY MOUTH EVERY DAY OR DIRECTED , # 180 tabs, 9 Refill(s), eRx: [facility] #[id number], TAKE ONE AND ONE-HALF TABLET BY MOUTH EVERY DAY OR DIRECTED Start Date: 02/07/14 Status: OrderedCrestor 5 mg oral tablet See Instructions, TAKE ONE TABLET BY MOUTH DAILY, # 30 tabs, eRx: [facility] #[id number], TAKE ONETABLET BY MOUTH DAILY Start Date: 11/17/14 Status: OrderedProscar 5 mg oral tablet See Instructions, TAKE ONE TABLET BY MOUTH EVERY NIGHT AT BEDTIME, # 30 tabs, 4 Refill(s), eRx: [facility] #[id number], TAKE ONE TABLET BY MOUTH EVERY NIGHT AT BEDTIME Start Date: 10/31/14 Status: OrderedTriCor 48 mg oral tablet See Instructions, TAKE ONE TABLET BY MOUTH DAILY FOR HIGH TRIGLYCERIDES., # 30 tabs, 2 Refill(s), eRx: [facility] #[id number], TAKE ONE TABLET BY MOUTH DAILY FOR [...] PB tendon Lt calcaneus 2011 L TKA [facility] 03/19/10 Colonoscopy 09/24/07 Cystoscopy and hydrodistension 01/14/07 Atrial fib. - conversion Gall Bladder Knee replacement1 1Left knee Social History Social History Type Response Smoking Status Never smoker Assessment and Plan Extracted from: Title: Ambulatory Patient Education Author: Cornell Jo JR, MD Date: Follow Up With: Where: When: Dmitry Rosenberg [address] [place] [address] Dr; [place] [address] Business (1) Within 3 to 5 days Comments: Follow Up With: Where: When: Cornell Erwin[address]; [place] [address] Business (1) In 1 year 10/26/2015 Comments: Extracted from: Title: Office Visit Note Author: Cornell Jo JR, MD Date: 10/25/14 Assessment/Plan BPH with obstruction/lower urinary tract symptoms lower urinary tract symptoms seem to be getting worse lately, patient instructed to reduce intake of caffeine, and not to forget to take his Proscar, every day. If his symptoms is persistent His symptoms his persistent I would like to see him in 6 months, but if its gets better by the above suggestions I will see him again in a year. PSA a week before next visit. Ordered: Office Visit Level 3 Est 11163 Prostate Specific Antigen
--- OUTSIDE RECORDS SUMMARY | 2017-07-17 19:18 | External Medical Summary | Referral Summary ---
:1935 Author Organization [facility] [place] [address] Care Team Providers Name Role Phone Asa Dejesus V Primary Care Physician Encounter VC Date(s): 07/11/14 - 07/11/14 [facility] [place] [phone] [place] Discharge Disposition: 01-Home or Self Care Attending Physician: Dmitry Rosenberg MD Admitting Physician: Dmitry Rosenberg MD Vital Signs Most recent to oldest [Reference Range]: 1 Temperature Tympanic [36.6-38.1 degC] 37 degC (07/11/14 8:33 AM) Peripheral Pulse Rate [60-100 bpm] 72 bpm (07/11/14 8:33 AM) Blood Pressure [90-140/60-90 mmHg] 132/90 mmHg (07/11/14 8:33 AM) Problem List Condition Effective Dates Status Health Status Informant Episode acute renal failure due to 08/01/09 Active NSAID+JENNIFER(Confirmed) Instability of right ankle Active joint(Confirmed) Atrial fibrillation Active (disorder)(Confirmed) Benign essential hypertension Active (disorder)(Confirmed) Hx gross bladder Active trabeculation(Confirmed) Chronic kidney disease, stage Active 3(Confirmed) Chronic kidney disease stage 3 Active (disorder)(Confirmed) Ac DVT/embl low ext NOS(Confirmed) Active Blood clots - lungs/legs(Confirmed) 12/1999 Active shelter use anticoagul(Confirmed)1 Active Hypertension(Confirmed) Resolved Hypertensive heart [...] Daily, # 90 tabs, 1 Refill(s), Pharmacy: [facility] # [id number], 1 tabs Oral Daily Start Date: 10/10/14 Status: Orderedaspirin 81 mg oral tablet 1 tabs, Oral, Daily, # 30 tabs, 0 Refill(s) Start Date: 07/11/13 Status: OrderedCoumadin 2 mg oral tablet See Instructions, TAKE ONE AND ONE-HALF TABLET BY MOUTH EVERY DAY OR DIRECTED , # 180 tabs, 9 Refill(s), eRx: [facility] #[id number], TAKE ONE AND ONE-HALF TABLET BY MOUTH EVERY DAY OR DIRECTED Start Date: 02/07/14 Status: OrderedCrestor 5 mg oral tablet See Instructions, TAKE ONE TABLET BY MOUTH DAILY, # 30 tabs, eRx: [facility] #[id number], TAKE ONETABLET BY MOUTH DAILY Start Date: 12/21/14 Status: OrderedProscar 5 mg oral tablet See Instructions, TAKE ONE TABLET BY MOUTH EVERY NIGHT AT BEDTIME, # 30 tabs, 4 Refill(s), eRx: [facility] #[id number], TAKE ONE TABLET BY MOUTH EVERY NIGHT AT BEDTIME Start Date: 10/31/14 Status: OrderedTriCor 48 mg oral tablet See Instructions, TAKE ONE TABLET BY MOUTH DAILY FOR HIGH TRIGLYCERIDES., # 30 tabs, eRx: [facility] #[id number], TAKE ONE TABLET BY MOUTH DAILY FOR HIGH TRIGLYCERIDES. Start Date: 12/21/14 Status: Ordered Results No data available for [...] calcaneus 2011 Repair PB tendon Lt calcaneus 2012 L TKA [facility] 03/19/10 Colonoscopy 09/24/07 Cystoscopy and hydrodistension 01/14/07 Atrial fib. - conversion Gall Bladder Knee replacement1 1Left knee Social History Social History Type Response Smoking Status Never smoker Assessment and Plan Extracted from: Title: Office Visit Note Author: Dmitry Rosenberg MD Date: 07/11/14 Assessment/Plan Atrial fibrillation (disorder) Ordered: PT Hypertension Ordered: CBC w/ Differential Mixed hyperlipidemia (disorder) Ordered: Comprehensive Metabolic Panel Lipid Panel Prediabetes Ordered: Hemoglobin A1c Prostatism Plan: Continue all current medications and follow-up in 6 months. Prior to that appointment I would check an INR and a CMP. I would also check an LDL. And I would check an A1c for prediabetes.
--- OUTSIDE RECORDS SUMMARY | 2017-07-17 19:18 | External Medical Summary | Referral Summary ---
:1935 Author Organization [facility] [place] [address] Care Team Providers Name Role Phone Asa Dejesus V Primary Care Physician Encounter VC Date(s): 08/21/16 - 08/21/16 [facility] [place] [phone] [place] Discharge Diagnosis: Mixed hyperlipidemia Discharge Diagnosis: Venous stasis dermatitis Discharge Diagnosis: Atrial fibrillation Discharge Diagnosis: Benign essential hypertension Discharge Diagnosis: Prediabetes Discharge Diagnosis: Chronic kidney disease, stage 3 Discharge Diagnosis: Warfarin anticoagulation Discharge Disposition: 01-Home or Self Care Attending Physician: Asa Dejesus MD Admitting Physician: Asa Dejesus MD Vital Signs Most recent to oldest [Reference Range]: 1 Peripheral Pulse Rate [60-100 bpm] 76 bpm (08/21/16 9:18 AM) Respiratory Rate [14-20 br/min] 18 br/min (08/21/16 9:18 AM) Blood Pressure [90-140/60-90 mmHg] 128/70 mmHg (08/21/16 9:18 AM) SpO2 97 % (08/21/16 9:18 AM) Problem List Condition Effective Dates Status [...] Venous stasis Active dermatitis(Confirmed) Warfarin Active anticoagulation(Confirmed) senior care use < 02/19/14 Resolved anticoagul(Confirmed)1 Hypertension(Confirmed) Resolved [...] DAILY, # 90 tabs, 1 Refill(s), eRx: [facility] #[id number] Start Date: 04/11/16 Status: Orderedaspirin 81 mg oral tablet 1 tabs, Oral, Daily, # 30 tabs, 0 Refill(s) Start Date: 07/11/13 Status: Orderedfenofibrate 48 mg oral tablet See Instructions, TAKE ONE TABLET BY MOUTH DAILY, # 30 tabs, 5 Refill(s), eRx: [facility] #[id number] Start Date: 05/03/16 Status: Orderedfinasteride 5 mg oral tablet 5 mg 1 tabs, Oral, Daily, # 30 tabs, 6 Refill(s), Pharmacy: [facility] # [id number], 1 tabs Oral Daily Start Date: 08/05/16 Status: OrderedMiscellaneous DME DME Item ORTHOTIC INSERTS FOR SHOES, See Instructions, # 2 Each, 0 Refill(s), Supply Start Date: 10/20/15 Status: Orderedrosuvastatin 5 mg oral tablet See Instructions, TAKE ONE TABLET BY MOUTH DAILY, # 30 tabs, 5 Refill(s), eRx: [facility] #[id number] Start Date: 02/29/16 Status: Orderedtamsulosin 0.4 mg oral capsule 0.4 mg 1 caps, Oral, Daily, # 30 caps, 11 Refill(s), Pharmacy: [facility] #[id number], 1 caps OralDaily,x30 days Start Date: 07/03/16 Stop Date: 06/28/17 Status: OrderedVoltaren 1% topical gel 1 barb, Topical, QID, as needed for pain, Use sparingly, be aware of increased bleeding risk, # 100 g, 0 Refill(s), Pharmacy: [facility] #[id number] Start Date: 04/17/16 Status: Orderedwarfarin 2 mg oral tablet See Instructions, TAKE 1 1/2 TABLETS (3MG) BY MOUTH THREE DAYS PER WEEK AND 1 TABLET (2MG) FOUR DAYSPER WEEK, # 102 tabs, eRx: [facility] #[id number] Start Date: 06/28/16 Status: Ordered Results No [...] PB tendon Lt calcaneus 2011 L TKA [facility] 03/19/10 Colonoscopy 09/24/07 Cystoscopy and hydrodistension 01/14/07 Atrial fib. - conversion Gall Bladder Knee replacement1 1Left knee Social History Social History Type Response Smoking Status Never smoker Assessment and Plan Extracted from: Title: 6 Month CDM HTN Author: Asa Dejesus MD Date: 08/21/16 Impression and Plan Diagnosis Atrial fibrillation (PBI92-CK I48.91, Discharge, Medical). Benign essential hypertension (TIH41-BH I10, Discharge, Medical). Chronic kidney disease, stage 3 (UTU72-HV N18.3, Discharge, Medical). Mixed hyperlipidemia (MAZ59-FG E78.2, Discharge, Medical). Prediabetes (YFG94-OD R73.03, Discharge, Medical). Venous stasis dermatitis (DSA55-LZ I83.10, Discharge, Medical). Warfarin anticoagulation (SNJ67-HU Z79.01, Discharge, Medical). Orders Orders (Selected) Outpatient Orders Future (On Hold) BMP: INR (PT): .
--- OUTSIDE RECORDS SUMMARY | 2017-07-17 19:18 | External Medical Summary | Referral Summary ---
:1935 Author Organization [facility] [place] [address] Care Team Providers Name Role Phone sAa Dejesus V Primary Care Physician Encounter VC Date(s): 10/31/15 - 10/31/15 [facility] [place] [phone] [place] Discharge Diagnosis: Encounter for removal of sutures Discharge Disposition: 01-Home or Self Care Attending Physician: Asa Dejesus MD Admitting Physician: Asa Dejesus MD Vital Signs Most recent to oldest [Reference Range]: 1 Peripheral Pulse Rate [60-100 bpm] 83 bpm (10/31/15 9:20 AM) Blood Pressure [90-140/60-90 mmHg] 104/70 mmHg (10/31/15 9:20 AM) Problem List Condition Effective Dates Status [...] - 02/19/14 Resolved lungs/legs(Confirmed) Warfarin Active anticoagulation(Confirmed) [facility] use Active anticoagul(Confirmed)1 Hypertension(Confirmed) Resolved Hypertensive heart [...] DAILY, # 90 tabs, 1 Refill(s), eRx: [facility] #[id number], TAKE ONE TABLET BY MOUTH DAILY Start Date: 10/02/15 Status: Orderedaspirin 81 mg oral tablet 1 tabs, Oral, Daily, # 30 tabs, 0 Refill(s) Start Date: 07/11/13 Status: OrderedCrestor 5 mg oral tablet 5 mg 1 tabs, Oral, Daily, # 30 tabs, 6 Refill(s), Pharmacy: [facility] # [id number], 1 tabs Oral Daily Start Date: 09/29/15 Status: Orderedfenofibrate 48 mg oral tablet 48 mg 1 tabs, Oral, Daily, # 30 tabs, 6 Refill(s), Pharmacy: [facility] # [id number], 1 tabs Oral Daily Start Date: 09/29/15 Status: Orderedfinasteride 5 mg oral tablet See Instructions, TAKE ONE TABLET BY MOUTH EVERY NIGHT AT BEDTIME, # 30 tabs, 5 Refill(s), eRx: [facility] #[id number], TAKE ONE TABLET BY MOUTH EVERY NIGHT AT BEDTIME Start Date: 10/02/15 Status: OrderedMiscellaneous DME DME Item ORTHOTIC INSERTS FOR SHOES, See Instructions, # 2 Each, 0 Refill(s), Supply Start Date: 10/20/15 Status: Orderedwarfarin 2 mg oral tablet See Instructions, PT TAKES 3MG 6 DAYS AND 2MG 1 DAY AWEEK, # 180 tabs, 0 Refill( s), Pharmacy: [facility] #[id number], PT TAKES 3MG 6 DAYS AND 2MG 1 DAY AWEEK Start Date: 10/04/15 Status: Ordered Results No data available for this section Immunizations Vaccine Date Refusal Reason tetanus/diphth/pertuss (Tdap) adult/adol 09/25/12 influenza virus vaccine, inactivated 10/31/15 influenza virus vaccine, inactivated 11/11/13 influenza virus vaccine, inactivated 10/27/12 influenza virus vaccine, live 10/27/12 influenza virus vaccine, live 11/27/11 pneumococcal 23-polyvalent vaccine 12/26/98 tetanus-diphth toxoids (Td) adult/adol 06/01/04 zoster vaccine live 12/04/10 Procedures Procedure Date Related Diagnosis Body Site Exostectomy Lt calcaneus [address] tendon Lt calcaneus 2011 Repair PB tendon Lt calcaneus 2011 L TKA [facility] 03/19/10 Colonoscopy 09/24/07 Cystoscopy and hydrodistension 01/14/07 Atrial fib. - conversion Gall Bladder Knee replacement1 1Left knee Social History Social History Type Response Smoking Status Never smoker Assessment and Plan Extracted from: Title: Suture Removal Author: Asa Dejesus MD Date: 10/31/15 Impression and Plan Diagnosis Encounter for removal of sutures (LFW81-WR Z48.02, Discharge, Medical).
--- OUTSIDE RECORDS SUMMARY | 2017-07-17 19:19 | External Medical Summary | Referral Summary ---
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 Hypertension(Confirmed) Resolved [...] Daily, # 90 tabs, 1 Refill(s), Pharmacy: [facility] # [id number], 1 tabs Oral Daily Start Date: 10/10/14 Status: Orderedaspirin 81 mg oral tablet 1 tabs, Oral, Daily, # 30 tabs, 0 Refill(s) Start Date: 07/11/13 Status: OrderedCoumadin 2 mg oral tablet See Instructions, TAKE ONE AND ONE-HALF TABLET BY MOUTH EVERY DAY OR DIRECTED , # 180 tabs, 9 Refill(s), eRx: [facility] #[id number], TAKE ONE AND ONE-HALF TABLET BY MOUTH EVERY DAY OR DIRECTED Start Date: 02/07/14 Status: OrderedCrestor 5 mg oral tablet See Instructions, TAKE ONE TABLET BY MOUTH DAILY, # 30 tabs, eRx: [facility] #[id number], TAKE ONETABLET BY MOUTH DAILY Start Date: 11/17/14 Status: OrderedProscar 5 mg oral tablet See Instructions, TAKE ONE TABLET BY MOUTH EVERY NIGHT AT BEDTIME, # 30 tabs, 4 Refill(s), eRx: [facility] #[id number], TAKE ONE TABLET BY MOUTH EVERY NIGHT AT BEDTIME Start Date: 10/31/14 Status: OrderedTriCor 48 mg oral tablet See Instructions, TAKE ONE TABLET BY MOUTH DAILY FOR HIGH TRIGLYCERIDES., # 30 tabs, 2 Refill(s), eRx: [facility] #[id number], TAKE ONE TABLET BY MOUTH DAILY FOR [...] PB tendon Lt calcaneus 2011 L TKA [facility] 03/19/10 Colonoscopy 09/24/07 Cystoscopy [...]
--- OUTSIDE RECORDS SUMMARY | 2017-07-17 19:19 | External Medical Summary | Referral Summary ---
:1935 Author Organization [facility] Address [address] [place] [address] Care Team Providers Name Role Phone Asa Dejesus V Primary Care Physician Encounter VC Date(s): 12/19/16 - 12/19/16 [facility] [address] [place] [address] [place] Discharge Disposition: 01-Home or Self Care Attending Physician: Niraj Barragan MD Admitting Physician: Niraj Barragan MD Vital Signs Most recent to oldest [Reference Range]: 1 Blood Pressure [90-140/60-90 mmHg] 138/58 mmHg (12/19/16 9:57 AM) Problem List Condition Effective Dates Status [...] Venous stasis Active dermatitis(Confirmed) Warfarin Active anticoagulation(Confirmed) 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 #[id number] Start Date: 10/21/16 Status: Orderedaspirin 81 mg oral tablet 1 tabs, Oral, Daily, # 30 tabs, 0 Refill(s) Start Date: 07/11/13 Status: Orderedfenofibrate 48 mg oral tablet See Instructions, TAKE ONE TABLET BY MOUTH DAILY, # 90 tabs, 1 Refill(s), eRx: [facility] #[id number] Start Date: 11/11/16 Status: Orderedfinasteride 5 mg oral tablet 5 mg 1 tabs, Oral, Daily, # 30 tabs, 6 Refill(s), Pharmacy: [facility] # [id number], 1 tabs Oral Daily Start Date: 08/05/16 Status: OrderedMiscellaneous DME DME Item ORTHOTIC INSERTS FOR SHOES, See Instructions, # 2 Each, 0 Refill(s), Supply Start Date: 10/20/15 Status: Orderedrosuvastatin 5 mg oral tablet See Instructions, TAKE ONE TABLET BY MOUTH DAILY, # 90 tabs, 2 Refill(s), eRx: [facility] #[id number] Start Date: 10/21/16 Status: Orderedtamsulosin 0.4 mg oral capsule 0.4 mg 1 caps, Oral, Daily, # 30 caps, 11 Refill(s), Pharmacy: [facility] #[id number], 1 caps OralDaily,x30 days Start Date: 07/03/16 Stop Date: 06/28/17 Status: OrderedVoltaren 1% topical gel 1 barb, Topical, QID, as needed for pain, Use sparingly, be aware of increased bleeding risk, # 100 g, 0 Refill(s), Pharmacy: [facility] #[id number] Start Date: 04/17/16 Status: Orderedwarfarin 2 mg oral tablet See Instructions, TAKE ONE AND ONE-HALF TABLET BY MOUTH DAILY 4 DAYS PER WEEK, AND 2 TABLETS THE OTHER 3 DAYS OF THE WEEK., # 102 tabs, eRx: [facility] # [id number] Start Date: 11/25/16 Status: Ordered Immunizations Given [...] PB tendon Lt calcaneus 2011 L TKA [facility] 03/19/10 Colonoscopy 09/24/07 Cystoscopy and hydrodistension 01/14/07 Atrial fib. - conversion Gall Bladder Knee replacement1 1Left knee Social History Social History Type Response Smoking Status Never smoker entered on: 07/12/13
--- OUTSIDE RECORDS SUMMARY | 2017-07-17 19:19 | External Medical Summary | Referral Summary ---
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 Active Hypertension(Confirmed) Resolved Hypertensive heart [...] Daily, # 90 tabs, 1 Refill(s), Pharmacy: [facility] # [id number], 1 tabs Oral Daily Start Date: 10/10/14 Status: Orderedaspirin 81 mg oral tablet 1 tabs, Oral, Daily, # 30 tabs, 0 Refill(s) Start Date: 07/11/13 Status: OrderedCoumadin 2 mg oral tablet See Instructions, TAKE ONE AND ONE-HALF TABLET BY MOUTH EVERY DAY OR DIRECTED , # 180 tabs, 9 Refill(s), eRx: [facility] #[id number], TAKE ONE AND ONE-HALF TABLET BY MOUTH EVERY DAY OR DIRECTED Start Date: 02/07/14 Status: OrderedCrestor 5 mg oral tablet See Instructions, TAKE ONE TABLET BY MOUTH DAILY, # 30 tabs, eRx: [facility] #[id number], TAKE ONETABLET BY MOUTH DAILY Start Date: 11/17/14 Status: OrderedProscar 5 mg oral tablet See Instructions, TAKE ONE TABLET BY MOUTH EVERY NIGHT AT BEDTIME, # 30 tabs, 4 Refill(s), eRx: [facility] #[id number], TAKE ONE TABLET BY MOUTH EVERY NIGHT AT BEDTIME Start Date: 10/31/14 Status: OrderedTriCor 48 mg oral tablet See Instructions, TAKE ONE TABLET BY MOUTH DAILY FOR HIGH TRIGLYCERIDES., # 30 tabs, 2 Refill(s), eRx: [facility] #[id number], TAKE ONE TABLET BY MOUTH DAILY FOR [...] PB tendon Lt calcaneus 2011 L TKA [facility] 03/19/10 Colonoscopy 09/24/07 Cystoscopy and [...]
--- OUTSIDE RECORDS SUMMARY | 2017-07-17 19:19 | External Medical Summary | Referral Summary ---
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 Active Hypertension(Confirmed) Resolved Hypertensive heart [...] Daily, # 90 tabs, 1 Refill(s), Pharmacy: [facility] # [id number], 1 tabs Oral Daily Start Date: 10/10/14 Status: Orderedaspirin 81 mg oral tablet 1 tabs, Oral, Daily, # 30 tabs, 0 Refill(s) Start Date: 07/11/13 Status: OrderedCoumadin 2 mg oral tablet See Instructions, TAKE ONE AND ONE-HALF TABLET BY MOUTH EVERY DAY OR DIRECTED , # 180 tabs, 9 Refill(s), eRx: [facility] #[id number], TAKE ONE AND ONE-HALF TABLET BY MOUTH EVERY DAY OR DIRECTED Start Date: 02/07/14 Status: OrderedCrestor 5 mg oral tablet See Instructions, TAKE ONE TABLET BY MOUTH DAILY, # 30 tabs, eRx: [facility] #[id number], TAKE ONETABLET BY MOUTH DAILY Start Date: 11/17/14 Status: OrderedProscar 5 mg oral tablet See Instructions, TAKE ONE TABLET BY MOUTH EVERY NIGHT AT BEDTIME, # 30 tabs, 4 Refill(s), eRx: [facility] #[id number], TAKE ONE TABLET BY MOUTH EVERY NIGHT AT BEDTIME Start Date: 10/31/14 Status: OrderedTriCor 48 mg oral tablet See Instructions, TAKE ONE TABLET BY MOUTH DAILY FOR HIGH TRIGLYCERIDES., # 30 tabs, 2 Refill(s), eRx: [facility] #[id number], TAKE ONE TABLET BY MOUTH DAILY FOR [...] PB tendon Lt calcaneus 2011 L TKA [facility] 03/19/10 Colonoscopy 09/24/07 Cystoscopy and [...]
--- OUTSIDE RECORDS SUMMARY | 2017-07-17 19:19 | External Medical Summary | Referral Summary ---
:1935 Author Organization [facility] [place] [address] Care Team Providers Name Role Phone Asa Dejesus V Primary Care Physician Encounter VC Date(s): 04/22/16 - 04/22/16 [facility] [place] [phone] [place] Discharge Disposition: 01-Home or Self Care Attending Physician: Asa Dejesus MD Admitting Physician: Asa Dejesus MD Vital Signs Most recent to oldest [Reference Range]: 1 Blood Pressure [90-140/60-90 mmHg] 140/90 mmHg (04/22/16 9:24 AM) Problem List Condition Effective Dates Status [...] Venous stasis Active dermatitis(Confirmed) Warfarin Active anticoagulation(Confirmed) halfway use < 02/19/14 Resolved anticoagul(Confirmed)1 Hypertension(Confirmed) Resolved [...] DAILY, # 90 tabs, 1 Refill(s), eRx: [facility] #[id number] Start Date: 04/11/16 Status: Orderedaspirin 81 mg oral tablet 1 tabs, Oral, Daily, # 30 tabs, 0 Refill(s) Start Date: 07/11/13 Status: Orderedcephalexin 500 mg oral tablet 500 mg 1 tabs, Oral, QID, X 7 days, # 28 tabs, 0 Refill(s), Pharmacy: [facility] #[id number], 1 tabs Oral QID,x7 days Start Date: 04/17/16 Stop Date: 04/24/16 Status: Orderedfenofibrate 48 mg oral tablet 48 mg 1 tabs, Oral, Daily, # 30 tabs, 6 Refill(s), Pharmacy: [facility] # [id number], 1 tabs Oral Daily Start Date: 09/29/15 Status: Orderedfinasteride 5 mg oral tablet See Instructions, TAKE ONE TABLET BY MOUTH EVERY NIGHT AT BEDTIME, # 30 tabs, 5 Refill(s), eRx: [facility] #[id number], TAKE ONE TABLET BY MOUTH EVERY NIGHT AT BEDTIME Start Date: 10/02/15 Status: OrderedMiscellaneous DME DME Item ORTHOTIC INSERTS FOR SHOES, See Instructions, # 2 Each, 0 Refill(s), Supply Start Date: 10/20/15 Status: Orderedrosuvastatin 5 mg oral tablet See Instructions, TAKE ONE TABLET BY MOUTH DAILY, # 30 tabs, 5 Refill(s), eRx: [facility] #[id number] Start Date: 02/29/16 Status: OrderedVoltaren 1% topical gel 1 barb, Topical, QID, as needed for pain, Use sparingly, be aware of increased bleeding risk, # 100 g, 0 Refill(s), Pharmacy: [facility] #[id number] Start Date: 04/17/16 Status: Orderedwarfarin 2 mg oral tablet See Instructions, TAKE 1 1/2 TABLETS (3MG) BY MOUTH THREE DAYS PER WEEK AND 1 TABLET (2MG) FOUR DAYSPER WEEK, # 180 tabs, eRx: [facility] #[id number] Start Date: 04/11/16 Status: Ordered Results No [...] PB tendon Lt calcaneus 2011 L [facility] 03/19/10 Colonoscopy 09/24/07 Cystoscopy and hydrodistension 01/14/07 Atrial fib. - conversion Gall Bladder Knee replacement1 1Left knee Social History Social History Type Response Smoking Status Never smoker Assessment and Plan Extracted from: Title: Ambulatory Patient Education Author: Guicho Wilcox RN Date: 04/22/16 Preventive Health Exercising to Stay Healthy Exercising regularly is important. It has many health benefits, such as: Improving your overall fitness, flexibility, and endurance. Increasing your bone density. Helping with weight control. Decreasing your body fat. Increasing your muscle strength. Reducing stress and tension. Improving your overall health. In order to become healthy and stay healthy, it is recommended that you do moderate-intensity and vigorous-intensity exercise. You can tell that you are exercising at a moderate intensity if you have a higher heart rate and faster breathing, but you are still able to hold a conversation. You can tell that you are exercising at a vigorous intensity if you are breathing much harder and faster and cannot hold a conversation while exercising. HOW OFTEN SHOULD I EXERCISE? Choose an activity that you enjoy and set realistic goals. Your health care provider can help you to make an activity plan that works for you. Exercise regularly as directed by your health care provider. This may include: Doing resistance training twice each week, such as: Push-ups. Sit-ups. Lifting weights. Using resistance bands. Doing a given intensity of exercise for a given amount of time. Choose from these options: 150 minutes of moderate-intensity exercise every week. 75 minutes of vigorous-intensity exercise every week. A mix of moderate-intensity and vigorous-intensity exercise every week. Children, women, people who are out of shape, people who are overweight, and older adults may need to consult a health care provider for individual recommendations. If you have any sort of medi lonny condition, be sure to consult your health care provider before starting a new exercise program. WHAT ARE SOME EXERCISE IDEAS? Some moderate-intensity exercise ideas include: Walking at a rate of 1 mile in 15 minutes. Biking. Hiking. Golfing. Dancing. Some vigorous-intensity exercise ideas include: Walking at a rate of at least 4.5 miles per hour. Jogging or running at a rate of 5 miles per hour. Biking at a rate of at least 10 miles per hour. Lap swimming. Roller-skating or in-line skating. Cross-country skiing. Vigorous competitive sports, such as football, basketball, and soccer. Jumping rope. Aerobic dancing. WHAT ARE SOME EVERYDAY ACTIVITIES THAT CAN HELP ME TO GET EXERCISE? Yard work, such as: Pushing a felt pad cutter. Raking and bagging leaves. Washing and waxing your car. Pushing a stroller. Shoveling snow. Gardening. Washing windows or floors. HOW CAN I BE MORE ACTIVE IN MY DAY-TO-DAY ACTIVITIES? Use the stairs instead of the elevator. Take a walk during your lunch break. If you drive, park your car farther away from work or school. If you take public transportation, get off one stop early and walk the rest of the way. Make all of your phone calls while standing up and walking around. Get up, stretch, and walk around every 30 minutes throughout the day. WHAT GUIDELINES SHOULD I FOLLOW WHILE EXERCISING? Do not exercise so much that you hurt yourself, feel dizzy, or get very short of breath. Consult your health care provider before starting a new exercise program. Wear comfortable clothes and shoes with good support. Drink plenty of water while you exercise to prevent dehydration or heat stroke. Body water is lost during exercise and must be replaced. Work out until you breathe faster and your heart beats faster. This information is not intended to replace advice given to you by your health care provider. Make sure you discuss any questions you have with your health care provider. Document Released: 03/01/2011 Document Revised: 02/17/2015 Document Reviewed: 06/30/2014 [employer] Patient Education 2016 [employer] Fall Prevention in the Home Falls can cause injuries. They can happen to people of all ages. There are many things you can do to make your home safe and to help prevent falls. WHAT CAN I DO ON THE OUTSIDE OF MY HOME? Regularly fix the edges of walkways and driveways and fix any cracks. Remove anything that might make you trip as you walk through a door, such as a raised step or threshold. Trim any bushes or trees on the path to your home. Use bright outdoor lighting. Clear any walking paths of anything that might make someone trip, such as rocks or tools. Regularly check to see if handrails are loose or broken. Make sure that both sides of any steps have handrails. Any raised decks and porches should have guardrails on the edges. Have any leaves, snow, or ice cleared regularly. Use sand or salt on walking paths during winter. Clean up any spills in your garage right away. This includes oil or grease spills. WHAT CAN I DO IN THE BATHROOM? Use night lights. Install grab bars by the toilet and in the tub and shower. Do not use towel bars as grab bars. Use non-skid mats or decals in the tub or shower. If you need to sit down in the shower, use a plastic, non-slip stool. Keep the floor dry. Clean up any water that spills on the floor as soon as it happens. Remove soap buildup in the tub or shower regularly. Attach bath mats securely with double-sided non-slip rug tape. Do not have throw rugs and other things on the floor that can make you trip. WHAT CAN I DO IN THE BEDROOM? Use night lights. Make sure that you have a light by your bed that is easy to reach. Do not use any sheets or blankets that are too big for your bed. They should not hang down onto the floor. Have a firm chair that has side arms. You can use this for support while you get dressed. Do not have throw rugs and other things on the floor that can make you trip. WHAT CAN I DO IN THE KITCHEN? Clean up any spills right away. Avoid walking on wet floors. Keep items that you use a lot in shgg-aa-hmpjr places. If you need to reach something above you, use a strong step stool that has a grab bar. Keep electrical cords out of the way. Do not use floor [place] islander or wax that makes floors slippery. If you must use wax, use non-skid floor wax. Do not have throw rugs and other things on the floor that can make you trip. WHAT CAN I DO WITH MY STAIRS? Do not leave any items on the stairs. Make sure that there are handrails on both sides of the stairs and use them. Fix handrails that are broken or loose. Make sure that handrails are as long as the stairways. Check any carpeting to make sure that it is firmly attached to the stairs. Fix any carpet that is loose or worn. Avoid having throw rugs at the top or bottom of the stairs. If you do have throw rugs, attach them to the floor with carpet tape. Make sure that you have a light switch at the top of the stairs and the bottom of the stairs. If you do not have them, ask someone to add them for you. WHAT ELSE CAN I DO TO HELP PREVENT FALLS? Wear shoes that: Do not have high heels. Have rubber bottoms. Are comfortable and fit you well. Are closed at the toe. Do not wear sandals. If you use a stepladder: Make sure that it is fully opened. Do not climb a closed stepladder. Make sure that both sides of the stepladder are locked into place. Ask someone to hold it for you, if possible. Clearly yuniel and make sure that you can see: Any grab bars or handrails. First and last steps. Where the edge of each step is. Use tools that help you move around (mobility aids) if they are needed. These include: Canes. Walkers. Scooters. Crutches. Turn on the lights when you go into a dark area. Replace any light bulbs as soon as they burn out. Set up your furniture so you have a clear path. Avoid moving your furniture around. If any of your floors are uneven, fix them. If there are any pets around you, be aware of where they are. Review your medicines with your doctor. Some medicines can make you feel dizzy. This can increase your chance of falling. Ask your doctor what other things that you can do to help prevent falls. This information is not intended to replace advice given to you by your health care provider. Make sure you discuss any questions you have with your health care provider. Document Released: 11/23/2009 Document Revised: 06/13/2015 Document Reviewed: 03/03/2015 [employer] Interactive Patient Education 2016 [employer] No follow up information was provided.
--- OUTSIDE RECORDS SUMMARY | 2017-07-17 19:19 | External Medical Summary | Referral Summary ---
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 Active Hypertension(Confirmed) Resolved Hypertensive heart [...] Daily, # 90 tabs, 1 Refill(s), Pharmacy: [facility] # [id number], 1 tabs Oral Daily Start Date: 10/10/14 Status: Orderedaspirin 81 mg oral tablet 1 tabs, Oral, Daily, # 30 tabs, 0 Refill(s) Start Date: 07/11/13 Status: OrderedCoumadin 2 mg oral tablet See Instructions, TAKE ONE AND ONE-HALF TABLET BY MOUTH EVERY DAY OR DIRECTED , # 180 tabs, 9 Refill(s), eRx: [facility] #[id number], TAKE ONE AND ONE-HALF TABLET BY MOUTH EVERY DAY OR DIRECTED Start Date: 02/07/14 Status: OrderedCrestor 5 mg oral tablet See Instructions, TAKE ONE TABLET BY MOUTH DAILY, # 30 tabs, eRx: [facility] #[id number], TAKE ONETABLET BY MOUTH DAILY Start Date: 11/17/14 Status: OrderedProscar 5 mg oral tablet See Instructions, TAKE ONE TABLET BY MOUTH EVERY NIGHT AT BEDTIME, # 30 tabs, 4 Refill(s), eRx: [facility] #[id number], TAKE ONE TABLET BY MOUTH EVERY NIGHT AT BEDTIME Start Date: 10/31/14 Status: OrderedTriCor 48 mg oral tablet See Instructions, TAKE ONE TABLET BY MOUTH DAILY FOR HIGH TRIGLYCERIDES., # 30 tabs, 2 Refill(s), eRx: [facility] #[id number], TAKE ONE TABLET BY MOUTH DAILY FOR [...] PB tendon Lt calcaneus 2011 L [facility] 03/19/10 Colonoscopy 09/24/07 Cystoscopy [...]
--- OUTSIDE RECORDS SUMMARY | 2017-07-17 19:19 | External Medical Summary | Referral Summary ---
:1935 Author Organization [facility], [facility] [address] [place] [address] Care Team Providers Name Role Phone Asa Dejesus V Primary Care Physician Encounter VC Date(s): 03/08/15 - 03/08/15 [facility] [address] [place] [address] [place] [phone] [place] Discharge Diagnosis: Atrial fibrillation Discharge Diagnosis: H/O chronic kidney disease Discharge Diagnosis: Mixed hyperlipidemia Discharge Disposition: 01-Home or Self Care Attending Physician: Seymour Goodrich MD Admitting Physician: Seymour Goodrich MD Referring Physician: Asa Dejesus MD Vital Signs Most recent to oldest [Reference Range]: 1 Peripheral Pulse Rate [60-100 bpm] 56 bpm *LOW* (03/08/15 9:51 AM) Blood Pressure [90-140/60-90 mmHg] 112/70 mmHg (03/08/15 9:51 AM) Problem List Condition Effective Dates Status Health Status Informant Episode acute renal failure due to 08/01/09 - 02/19/14 Resolved NSAID+JENNIFER(Confirmed) Instability of right ankle Active joint(Confirmed) Atrial fibrillation Active (disorder)(Confirmed) Benign essential hypertension Active (disorder)(Confirmed) Chronic kidney disease, stage Active 3(Confirmed) Chronic kidney disease stage 3 Resolved (disorder)(Confirmed) Ac DVT/embl low ext NOS(Confirmed) Active Blood clots - 12/1999 - 02/19/14 Resolved lungs/legs(Confirmed) custodial use Active anticoagul(Confirmed)1 Hypertension(Confirmed) Resolved Hypertensive heart [...] Pharmacy: [facility] # [id number], 1 tabs Oral Daily Start Date: 02/23/15 Status: Orderedaspirin 81 mg oral tablet 1 tabs, Oral, Daily, # 30 tabs, 0 Refill(s) Start Date: 07/11/13 Status: OrderedCoumadin 2 mg oral tablet See Instructions, PT TAKES 2MG ALT WITH 3MG, # 180 tabs, 0 Refill(s), Pharmacy: [facility] #[id number], PT TAKES 2MG ALT WITH 3MG Start Date: 02/23/15 Status: OrderedCrestor 5 mg oral tablet 5 mg 1 tabs, Oral, Daily, # 30 tabs, 6 Refill(s), Pharmacy: [facility] # [id number], 1 tabs Oral Daily Start Date: 02/23/15 Status: OrderedProscar 5 mg oral tablet See Instructions, TAKE ONE TABLET BY MOUTH EVERY NIGHT AT BEDTIME, # 30 tabs, 4 Refill(s), eRx: [facility] #[id number], TAKE ONE TABLET BY MOUTH EVERY NIGHT AT BEDTIME Start Date: 10/31/14 Status: OrderedTriCor 48 mg oral tablet 48 mg 1 tabs, Oral, Daily, # 30 tabs, 6 Refill(s), Pharmacy: [facility] # [id number], 1 tabs Oral Daily Start Date: 02/23/15 Status: Ordered Results No data available for [...] PB tendon Lt calcaneus 2011 L [facility] 03/19/10 Colonoscopy 09/24/07 Cystoscopy and hydrodistension 01/14/07 Atrial fib. - conversion Gall Bladder Knee replacement1 1Left knee Social History Social History Type Response Smoking Status Never smoker Assessment and Plan Extracted from: Title: Office Visit Note Author: Seymour Goodrich MD Date: 03/08/15 Assessment/Plan 1.Atrial fibrillation 2.H/O chronic kidney disease 3.Mixed hyperlipidemia Decisions: From a cardiac point of view, he continues to be symptom free and very stable. Although I wasuneasy about initiation ofstatin therapy,he is now on statin therapy and tolerating it well. He prefers every 6 months visits. He is to call if he has any difficulty.
--- OUTSIDE RECORDS SUMMARY | 2017-07-17 19:19 | External Medical Summary | Referral Summary ---
:1935 Author Organization [facility] [place] [address] Care Team Providers Name Role Phone Asa Dejesus V Primary Care Physician Encounter VC Date(s): 08/08/14 - 08/08/14 [facility] [place] [phone] [place] Discharge Disposition: 01-Home or Self Care Attending Physician: Dmitry Rosenberg MD Admitting Physician: Dmitry Rosenberg MD Vital Signs Most recent to oldest [Reference Range]: 1 Temperature Tympanic [36.6-38.1 degC] 35.9 degC *LOW* (08/08/14 8:29 AM) Peripheral Pulse Rate [60-100 bpm] 76 bpm (08/08/14 8:29 AM) Blood Pressure [90-140/60-90 mmHg] 124/88 mmHg (08/08/14 8:29 AM) Problem List Condition Effective Dates Status Health Status Informant Episode acute renal failure due to 08/01/09 - 02/19/14 Resolved NSAID+JENNIFER(Confirmed) Instability of right ankle Active joint(Confirmed) Atrial fibrillation Active (disorder)(Confirmed) Benign essential hypertension Active (disorder)(Confirmed) Chronic kidney disease, stage Active 3(Confirmed) Chronic kidney disease stage 3 Resolved (disorder)(Confirmed) Ac DVT/embl low ext NOS(Confirmed) Active Blood clots - 12/1999 - 02/19/14 Resolved lungs/legs(Confirmed) 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 Hypertension(Confirmed) Resolved Hypertensive heart [...] Daily, # 90 tabs, 1 Refill(s), Pharmacy: [facility] # [id number], 1 tabs Oral Daily Start Date: 10/10/14 Status: Orderedaspirin 81 mg oral tablet 1 tabs, Oral, Daily, # 30 tabs, 0 Refill(s) Start Date: 07/11/13 Status: OrderedCoumadin 2 mg oral tablet See Instructions, TAKE ONE AND ONE-HALF TABLET BY MOUTH EVERY DAY OR DIRECTED , # 180 tabs, 9 Refill(s), eRx: [facility] #[id number], TAKE ONE AND ONE-HALF TABLET BY MOUTH EVERY DAY OR DIRECTED Start Date: 02/07/14 Status: OrderedCrestor 5 mg oral tablet See Instructions, TAKE ONE TABLET BY MOUTH DAILY, # 30 tabs, eRx: [facility] #[id number], TAKE ONETABLET BY MOUTH DAILY Start Date: 01/23/15 Status: OrderedProscar 5 mg oral tablet See Instructions, TAKE ONE TABLET BY MOUTH EVERY NIGHT AT BEDTIME, # 30 tabs, 4 Refill(s), eRx: [facility] #[id number], TAKE ONE TABLET BY MOUTH EVERY NIGHT AT BEDTIME Start Date: 10/31/14 Status: OrderedTriCor 48 mg oral tablet See Instructions, TAKE ONE TABLET BY MOUTH DAILY FOR HIGH TRIGLYCERIDES., # 30 tabs, eRx: [facility] #[id number], TAKE ONE TABLET BY MOUTH DAILY FOR HIGH TRIGLYCERIDES. Start Date: 01/23/15 Status: Ordered Results No data available for this section Immunizations Vaccine Date Refusal Reason tetanus/diphth/pertuss (Tdap) adult/adol 09/25/12 influenza virus vaccine, inactivated 11/11/13 influenza virus vaccine, inactivated 10/27/12 influenza virus vaccine, live 10/27/12 influenza virus vaccine, live 10/17/12 pneumococcal 23-polyvalent vaccine 12/26/98 tetanus-diphth toxoids (Td) adult/adol 06/01/04 zoster vaccine live 12/04/10 Procedures Procedure Date Related Diagnosis Body Site Exostectomy Lt calcaneus [address] tendon Lt calcaneus 2011 Repair PB tendon Lt calcaneus 2011 L [facility] 03/19/10 Colonoscopy 09/24/07 Cystoscopy and hydrodistension 01/14/07 Atrial fib. - conversion Gall Bladder Knee replacement1 1Left knee Social History Social History Type Response Smoking Status Never smoker Assessment and Plan Extracted from: Title: Office Visit Note Author: Dmitry Rosenberg MD Date: 08/08/14 Assessment/Plan Atrial fibrillation (disorder) Chronic kidney disease stage 3 (disorder) Plan: For now we'll stay off lisinopril completely. I'll recheck your lab tests in January and periodically along with her pro times. We'll discuss with Dr. Goodrich regarding the possibly adding a very low dose lisinopril. If your heart rate becomes uncontrolled let me know. Otherwise continue the current list of medications and follow-up in January.
--- OUTSIDE RECORDS SUMMARY | 2017-07-17 19:19 | External Medical Summary | Referral Summary ---
:1935 Author Organization [facility] Address [address] [place] [address] Care Team Providers Name Role Phone Asa Dejesus V Primary Care Physician Dmitry Rosenberg Primary Care Physician Dayday Damian JR Primary Care Physician Encounter [facility] [id number] Date(s): 04/08/17 - 04/08/17 [facility] [address] [place] [address] [place] Discharge Disposition: 01-Home or Self Care Attending Physician: Seymour Goodrich MD Admitting Physician: Seymour Goodrich MD Referring Physician: Asa Dejesus MD Vital Signs Most recent to oldest [Reference Range]: 1 Peripheral Pulse Rate [60-100 bpm] 72 bpm (04/08/17 11:25 AM) Blood Pressure [90-140/60-90 mmHg] 122/82 mmHg (04/08/17 11:25 AM) Problem List Condition Effective Dates Status [...] Venous stasis Active dermatitis(Confirmed) Warfarin Active anticoagulation(Confirmed) [facility] use < 02/19/14 Resolved anticoagul(Confirmed)1 Hypertension(Confirmed) Resolved [...] # 90 tabs, 1 Refill(s), eRx: [facility] #[id number] Start Date: 10/21/16 Status: Orderedaspirin 81 mg oral tablet 1 tabs, Oral, Daily, # 30 tabs, 0 Refill(s) Start Date: 07/11/13 Status: Orderedfenofibrate 48 mg oral tablet See Instructions, TAKE ONE TABLET BY MOUTH DAILY, # 90 tabs, 1 Refill(s), eRx: [facility] #[id number] Start Date: 11/11/16 Status: Orderedfinasteride 5 mg oral tablet 5 mg 1 tabs, Oral, Daily, # 30 tabs, 6 Refill(s), Pharmacy: [facility] # [id number], 1 tabs Oral Daily Start Date: 08/05/16 Status: OrderedMiscellaneous DME DME Item ORTHOTIC INSERTS FOR SHOES, See Instructions, # 2 Each, 0 Refill(s), Supply Start Date: 10/20/15 Status: Orderedrosuvastatin 5 mg oral tablet See Instructions, TAKE ONE TABLET BY MOUTH DAILY, # 90 tabs, 2 Refill(s), eRx: [facility] #[id number] Start Date: 10/21/16 Status: Orderedtamsulosin 0.4 mg oral capsule 0.4 mg 1 caps, Oral, Daily, # 30 caps, 11 Refill(s), Pharmacy: [facility] #[id number], 1 caps OralDaily,x30 days Start Date: 07/03/16 Stop Date: 06/28/17 Status: OrderedVoltaren 1% topical gel 1 barb, Topical, QID, as needed for pain, Use sparingly, be aware of increased bleeding risk, # 100 g, 0 Refill(s), Pharmacy: [facility] #[id number] Start Date: 04/17/16 Status: Orderedwarfarin 2 mg oral tablet See Instructions, TAKE ONE AND ONE-HALF TABLET BY MOUTH DAILY 4 DAYS PER WEEK, AND 2 TABLETS THE OTHER 3 DAYS OF THE WEEK., # 102 tabs, eRx: [facility] # [id number] Start Date: 11/25/16 Status: Ordered Immunizations Given [...] tendon Lt calcaneus 2011 Completed L [facility] 03/19/10 Completed Colonoscopy 09/24/07 Completed Cystoscopy and hydrodistension 01/14/07 Completed Atrial fib. - conversion Completed Gall Bladder Completed Knee replacement1 Completed 1Left knee Social History Social History Type Response Smoking Status Never smoker entered on: 07/12/13
--- OUTSIDE RECORDS SUMMARY | 2017-07-17 19:19 | External Medical Summary | Referral Summary ---
:1935 Author Organization [facility] [place] [address] Care Team Providers Name Role Phone Asa Dejesus V Primary Care Physician Encounter VC Date(s): 08/22/15 - 08/22/15 [facility] [place] [phone] [place] Discharge Diagnosis: Chronic kidney disease, stage 3 Discharge Diagnosis: Encounter for medication monitoring Discharge Diagnosis: Mixed hyperlipidemia Discharge Diagnosis: Atrial fibrillation (disorder) Discharge Diagnosis: Warfarin anticoagulation Discharge Diagnosis: Benign essential hypertension Discharge Diagnosis: Change in bowel habit Discharge Diagnosis: Cyst of skin Discharge Disposition: 01-Home or Self Care Attending Physician: Asa Dejesus MD Admitting Physician: Asa Dejesus MD Vital Signs Most recent to oldest [Reference Range]: 1 Temperature Tympanic [36.6-38.1 degC] 36 degC *LOW* (08/22/15 9:18 AM) Peripheral Pulse Rate [60-100 bpm] 62 bpm (08/22/15 9:18 AM) Blood Pressure [90-140/60-90 mmHg] 110/77 mmHg (08/22/15 9:18 AM) Problem List Condition Effective Dates [...] - 02/19/14 Resolved lungs/legs(Confirmed) Warfarin Active anticoagulation(Confirmed) skilled nursing use Active anticoagul(Confirmed)1 Hypertension(Confirmed) Resolved Hypertensive heart [...] Daily, # 90 tabs, 1 Refill(s), Pharmacy: [facility] # [id number], 1 tabs Oral Daily Start Date: 02/23/15 Status: Orderedaspirin 81 mg oral tablet 1 tabs, Oral, Daily, # 30 tabs, 0 Refill(s) Start Date: 07/11/13 Status: OrderedCrestor 5 mg oral tablet See Instructions, TAKE ONE TABLET BY MOUTH DAILY, # 30 tabs, 3 Refill(s), eRx: [facility] #[id number], TAKE ONE TABLET BY MOUTH DAILY Start Date: 05/22/15 Status: Orderedfenofibrate 48 mg oral tablet See Instructions, TAKE ONE TABLET BY MOUTH DAILY FOR HIGH TRIGLYCERIDES., # 30 tabs, 3 Refill(s), eRx: [facility] #[id number], TAKE ONE TABLET BY MOUTH DAILY FOR HIGH TRIGLYCERIDES. Start Date: 05/22/15 Status: OrderedProscar 5 mg oral tablet See Instructions, TAKE ONE TABLET BY MOUTH EVERY NIGHT AT BEDTIME, # 30 tabs, 4 Refill(s), eRx: [facility] #[id number], TAKE ONE TABLET BY MOUTH EVERY NIGHT AT BEDTIME Start Date: 03/21/15 Status: Orderedwarfarin 2 mg oral tablet See Instructions, TAKE 2 MG (1 TABLET) EVERY OTHER DAY, ALTERNATING WITH 3 MG (1 -1/2 TABLETS) ON THEALTERNATE DAY., # 180 tabs, eRx: [facility] #[id number], TAKE 2 MG (1 TABLET) EVERY OTHER [...] PB tendon Lt calcaneus 2011 L [facility] 03/19/10 Colonoscopy 09/24/07 Cystoscopy and hydrodistension 01/14/07 Atrial fib. - conversion Gall Bladder Knee replacement1 1Left knee Social History Social History Type Response Smoking Status Never smoker Assessment and Plan Extracted from: Title: 6 Month CDM Author: Asa Dejesus MD Date: 08/22/15 Impression and Plan Diagnosis Warfarin anticoagulation (EEZ15-GV Z79.01, Discharge, Medical). Mixed hyperlipidemia (XDI45-ME E78.2, Discharge, Medical). Encounter for medication monitoring (BJJ56-PE Z51.81, Discharge, Medical). Chronic kidney disease, stage 3 (VKC34-BL N18.3, Discharge, Medical). Change in bowel habit (XSG34-IC R19.4, Discharge, Medical). Benign essential hypertension (CZC82-QJ I10, Discharge, Medical). Atrial fibrillation (disorder) (XMK47-JS I48.91, Discharge, Medical). Orders Orders (Selected) Outpatient Orders Future (On Hold) BMP: CBC w/ Differential: CPK: Fasting Lipid Profile: Occult Blood X 3, Stool: .
--- OUTSIDE RECORDS SUMMARY | 2017-07-17 19:19 | External Medical Summary | Referral Summary ---
:1935 Author Organization [facility] [address] [place] [address] Care Team Providers Name Role Phone Dmitry Rosenberg Primary Care Physician Encounter VC Date(s): 10/25/14 - 10/25/14 [facility] [address] [place] [address] [place] [phone] [place] Discharge Diagnosis: BPH [...] Active Blood clots - lungs/legs(Confirmed) 12/1999 Active FDC use anticoagul(Confirmed)1 Active Hypertension(Confirmed) Resolved Hypertensive heart [...] Daily, # 90 tabs, 1 Refill(s), Pharmacy: [facility] # [id number], 1 tabs Oral Daily Start Date: 10/10/14 Status: Orderedaspirin 81 mg oral tablet 1 tabs, Oral, Daily, # 30 tabs, 0 Refill(s) Start Date: 07/11/13 Status: OrderedCoumadin 2 mg oral tablet See Instructions, TAKE ONE AND ONE-HALF TABLET BY MOUTH EVERY DAY OR DIRECTED , # 180 tabs, 9 Refill(s), eRx: [facility] #[id number], TAKE ONE AND ONE-HALF TABLET BY MOUTH EVERY DAY OR DIRECTED Start Date: 02/07/14 Status: OrderedCrestor 5 mg oral tablet See Instructions, TAKE ONE TABLET BY MOUTH DAILY, # 30 tabs, eRx: [facility] #[id number], TAKE ONETABLET BY MOUTH DAILY Start Date: 11/17/14 Status: OrderedProscar 5 mg oral tablet See Instructions, TAKE ONE TABLET BY MOUTH EVERY NIGHT AT BEDTIME, # 30 tabs, 4 Refill(s), eRx: [facility] #[id number], TAKE ONE TABLET BY MOUTH EVERY NIGHT AT BEDTIME Start Date: 10/31/14 Status: OrderedTriCor 48 mg oral tablet See Instructions, TAKE ONE TABLET BY MOUTH DAILY FOR HIGH TRIGLYCERIDES., # 30 tabs, 2 Refill(s), eRx: [facility] #[id number], TAKE ONE TABLET BY MOUTH DAILY FOR [...] PB tendon Lt calcaneus 2011 L [facility] 03/19/10 Colonoscopy 09/24/07 Cystoscopy and hydrodistension 01/14/07 Atrial fib. - conversion Gall Bladder Knee replacement1 1Left knee Social History Social History Type Response Smoking Status Never smoker Assessment and Plan Extracted from: Title: Ambulatory Patient Education Author: Cornell Jo JR, MD Date: Follow Up With: Where: When: Dmitry Rosenberg [address] [place] [address] Dr; [place] [address] Business (1) Within 3 to 5 days Comments: Follow Up With: Where: When: Cornell Erwin[address]; [place] [address] Business (1) In 1 year [...] visit. Ordered: Office Visit Level 3 Est 19845 Prostate Specific Antigen
--- OUTSIDE RECORDS SUMMARY | 2017-07-17 19:19 | External Medical Summary | Referral Summary ---
:1935 Author Organization [facility] [address] [place] [address] Care Team Providers Name Role Phone Asa Dejesus Mo Primary Care Physician Encounter VC Date(s): 08/24/14 - 08/24/14 [facility] [address] [place] [address] [place] [phone] [place] Discharge Diagnosis: Atrial [...] clots - 12/1999 - 02/19/14 Resolved lungs/legs(Confirmed) long term care administrator use Active anticoagul(Confirmed)1 Hypertension(Confirmed) Resolved Hypertensive heart [...] Daily, # 90 tabs, 1 Refill(s), Pharmacy: [facility] # [id number], 1 tabs Oral Daily Start Date: 02/23/15 Status: Orderedaspirin 81 mg oral tablet 1 tabs, Oral, Daily, # 30 tabs, 0 Refill(s) Start Date: 07/11/13 Status: OrderedCoumadin 2 mg oral tablet See Instructions, PT TAKES 2MG ALT WITH 3MG, # 180 tabs, 0 Refill(s), Pharmacy: [facility] #[id number], PT TAKES 2MG ALT WITH 3MG Start Date: 02/23/15 Status: OrderedCrestor 5 mg oral tablet 5 mg 1 tabs, Oral, Daily, # 30 tabs, 6 Refill(s), Pharmacy: [facility] # [id number], 1 tabs Oral Daily Start Date: 02/23/15 Status: OrderedProscar 5 mg oral tablet See Instructions, TAKE ONE TABLET BY MOUTH EVERY NIGHT AT BEDTIME, # 30 tabs, 4 Refill(s), eRx: [facility] #[id number], TAKE ONE TABLET BY MOUTH EVERY NIGHT AT BEDTIME Start Date: 10/31/14 Status: OrderedTriCor 48 mg oral tablet 48 mg 1 tabs, Oral, Daily, # 30 tabs, 6 Refill(s), Pharmacy: [facility] # [id number], 1 tabs Oral Daily Start Date: 02/23/15 [...] tendon Lt calcaneus [address] [facility] 03/19/10 Colonoscopy 09/24/07 Cystoscopy and hydrodistension [...]
--- OUTSIDE RECORDS SUMMARY | 2017-07-17 19:19 | External Medical Summary | Referral Summary ---
:1935 Author Organization [facility] Address [address] [place] [address] Care Team Providers Name Role Phone SeanrobbiAsa V Primary Care Physician Encounter VC Date(s): 09/06/14 - 09/06/14 [facility] [address] [place] [address] [place] Discharge Diagnosis: Instability of right ankle joint Discharge Diagnosis: ATRIAL FIBRILLATION Discharge Diagnosis: Primary osteoarthritis of right knee Discharge Disposition: 01-Home or Self Care Attending Physician: Angel Ortega MD Admitting Physician: Angel Ortega MD Vital Signs No data available for this section Problem List Condition Effective Dates Status Health Status Informant Episode acute renal failure due to 08/01/09 - 02/19/14 Resolved NSAID+JENNIFER(Confirmed) Instability of right ankle Active joint(Confirmed) Atrial fibrillation Active (disorder)(Confirmed) Benign essential hypertension Active (disorder)(Confirmed) Chronic kidney disease, stage Active 3(Confirmed) Chronic kidney disease stage 3 Resolved (disorder)(Confirmed) Ac DVT/embl low ext NOS(Confirmed) Active Blood clots - 12/1999 - 02/19/14 Resolved lungs/legs(Confirmed) correction use Active anticoagul(Confirmed)1 Hypertension(Confirmed) Resolved Hypertensive heart [...] Daily, # 90 tabs, 1 Refill(s), Pharmacy: [facility] # [id number], 1 tabs Oral Daily Start Date: 02/23/15 Status: Orderedaspirin 81 mg oral tablet 1 tabs, Oral, Daily, # 30 tabs, 0 Refill(s) Start Date: 07/11/13 Status: OrderedCoumadin 2 mg oral tablet See Instructions, PT TAKES 2MG ALT WITH 3MG, # 180 tabs, 0 Refill(s), Pharmacy: [facility] #[id number], PT TAKES 2MG ALT WITH 3MG Start Date: 02/23/15 Status: OrderedCrestor 5 mg oral tablet 5 mg 1 tabs, Oral, Daily, # 30 tabs, 6 Refill(s), Pharmacy: [facility] # [id number], 1 tabs Oral Daily Start Date: 02/23/15 Status: OrderedProscar 5 mg oral tablet See Instructions, TAKE ONE TABLET BY MOUTH EVERY NIGHT AT BEDTIME, # 30 tabs, 4 Refill(s), eRx: [facility] #[id number], TAKE ONE TABLET BY MOUTH EVERY NIGHT AT BEDTIME Start Date: 10/31/14 Status: OrderedTriCor 48 mg oral tablet 48 mg 1 tabs, Oral, Daily, # 30 tabs, 6 Refill(s), Pharmacy: [facility] # [id number], 1 tabs Oral Daily Start Date: 02/23/15 [...] PB tendon Lt calcaneus 2012 L [facility] 03/19/10 Colonoscopy 09/24/07 Cystoscopy and hydrodistension 01/14/07 Atrial fib. - conversion Gall Bladder Knee replacement1 1Left knee Social History Social History Type Response Smoking Status Never smoker Assessment and Plan Extracted from: Title: Office Visit Note Author: Angel Ortega MD Date: 09/06/14 Assessment/Plan Instability of right ankle joint 79-year-old male with complaint of right ankle instability. We decided to try an ankle brace on the right ankle and he apparently has seen somebody at [facility] walkby. We gave him a prescription for this. Ordered: Office Visit Level 4 Est 35061 Primary osteoarthritis of right knee 79-year-old male with osteoarthrosis of the right knee. Since he doesn't feel that he got any better with the injection on his left knee, he doesn't want to do that on the right. He is considering knee replacement surgery on the right side, and he has been through this before. All questions were answered and he is going to call if he like to set this up. Status post left total knee replacement. His left knee is doing well. This today lasted 22 minutes, over 50 percent of the time being spent in discussion of possible treatment options for his right knee arthritis and right ankle instability. Ordered: Office Visit Level 4 Est 89043
--- OUTSIDE RECORDS SUMMARY | 2017-07-17 19:20 | External Medical Summary | Referral Summary ---
:1935 Author Organization [facility] [place] [address] Care Team Providers Name Role Phone Asa Dejesus Mo Primary Care Physician Encounter VC SHAYY [phone] Date(s): 09/12/15 - 09/12/15 [facility] [place] [phone] [place] Discharge Disposition: 01-Home or Self Care Attending Physician: Viral Lira APRN Admitting Physician: Viral Lira APRN Vital Signs Most recent to oldest [Reference Range]: 1 Peripheral Pulse Rate [60-100 bpm] 77 bpm (09/12/15 10:44 AM) Respiratory Rate [14-20 br/min] 18 br/min (09/12/15 10:44 AM) Blood Pressure [90-140/60-90 mmHg] 122/74 mmHg (09/12/15 10:44 AM) SpO2 98 % (09/12/15 10:44 AM) Problem List Condition Effective Dates Status [...] - 02/19/14 Resolved lungs/legs(Confirmed) Warfarin Active anticoagulation(Confirmed) halfway use Active anticoagul(Confirmed)1 Hypertension(Confirmed) Resolved Hypertensive heart [...] 1 Refill(s), Pharmacy: [facility] # [id number], 1 tabs Oral Daily Start Date: 02/23/15 Status: Orderedaspirin 81 mg oral tablet 1 tabs, Oral, Daily, # 30 tabs, 0 Refill(s) Start Date: 07/11/13 Status: OrderedCrestor 5 mg oral tablet See Instructions, TAKE ONE TABLET BY MOUTH DAILY, # 30 tabs, 3 Refill(s), eRx: [facility] #[id number], TAKE ONE TABLET BY MOUTH DAILY Start Date: 05/22/15 Status: Orderedfenofibrate 48 mg oral tablet See Instructions, TAKE ONE TABLET BY MOUTH DAILY FOR HIGH TRIGLYCERIDES., # 30 tabs, 3 Refill(s), eRx: [facility] #[id number], TAKE ONE TABLET BY MOUTH DAILY FOR HIGH TRIGLYCERIDES. Start Date: 05/22/15 Status: Orderedfinasteride 5 mg oral tablet See Instructions, TAKE ONE TABLET BY MOUTH EVERY NIGHT AT BEDTIME, # 30 tabs, 2 Refill(s), eRx: [facility] #[id number], TAKE ONE TABLET BY MOUTH EVERY NIGHT AT BEDTIME Start Date: 08/31/15 Status: Orderedwarfarin 2 mg oral tablet See Instructions, TAKE 2 MG (1 TABLET) EVERY OTHER DAY, ALTERNATING WITH 3 MG (1 -1/2 TABLETS) ON THEALTERNATE DAY., # 180 tabs, eRx: [facility] #[id number], TAKE 2 MG (1 TABLET) EVERY OTHER [...] PB tendon Lt calcaneus 2011 L [facility] 03/19/10 Colonoscopy 09/24/07 Cystoscopy and hydrodistension 01/14/07 Atrial fib. - conversion Gall Bladder Knee replacement1 1Left knee Social History Social History Type Response Smoking Status Never smoker Assessment and Plan No data available for this section
--- OUTSIDE RECORDS SUMMARY | 2017-07-17 19:20 | External Medical Summary | Referral Summary ---
:1935 Author Organization [facility] [address] [place] [address] Care Team Providers Name Role Phone Asa Dejesus V Primary Care Physician Encounter VC Date(s): 03/20/16 - 03/20/16 [facility], [address] [place] [phone] [place] Discharge Diagnosis: Mixed hyperlipidemia Discharge Diagnosis: Atrial fibrillation Discharge Diagnosis: CKD (chronic kidney disease) Discharge Diagnosis: Benign essential hypertension Discharge Disposition: 01-Home or Self Care Attending Physician: Seymour Goodrich MD Admitting Physician: Seymour Goodrich MD Referring Physician: Asa Dejesus MD Vital Signs Most recent to oldest [Reference Range]: 1 Peripheral Pulse Rate [60-100 bpm] 80 bpm (03/20/16 2:20 PM) Blood Pressure [90-140/60-90 mmHg] 122/82 mmHg (03/20/16 2:20 PM) Problem List Condition Effective Dates Status [...] Venous stasis Active dermatitis(Confirmed) Warfarin Active anticoagulation(Confirmed) manager long term care use < 02/19/14 Resolved anticoagul(Confirmed)1 Hypertension(Confirmed) [...] DAILY, # 90 tabs, 1 Refill(s), eRx: [facility] #[id number], TAKE ONE TABLET BY MOUTH DAILY Start Date: 10/02/15 Status: Orderedaspirin 81 mg oral tablet 1 tabs, Oral, Daily, # 30 tabs, 0 Refill(s) Start Date: 07/11/13 Status: Orderedfenofibrate 48 mg oral tablet 48 mg 1 tabs, Oral, Daily, # 30 tabs, 6 Refill(s), Pharmacy: [facility] # [id number], 1 tabs Oral Daily Start Date: 09/29/15 Status: Orderedfinasteride 5 mg oral tablet See Instructions, TAKE ONE TABLET BY MOUTH EVERY NIGHT AT BEDTIME, # 30 tabs, 5 Refill(s), eRx: [facility] #[id number], TAKE ONE TABLET BY MOUTH EVERY NIGHT AT BEDTIME Start Date: 10/02/15 Status: OrderedMiscellaneous DME DME Item ORTHOTIC INSERTS FOR SHOES, See Instructions, # 2 Each, 0 Refill(s), Supply Start Date: 10/20/15 Status: Orderedrosuvastatin 5 mg oral tablet See Instructions, TAKE ONE TABLET BY MOUTH DAILY, # 30 tabs, 5 Refill(s), eRx: [facility] #[id number] Start Date: 02/29/16 Status: Orderedwarfarin 2 mg oral tablet See Instructions, PT TAKES 3MG 3 DAYS AND 2MG 4 DAYS AWEEK, # 180 tabs, 0 Refill (s), Pharmacy: [facility] #[id number], PT TAKES 3MG 3 DAYS AND 2MG 4 DAYS AWEEK Start Date: 01/11/16 Status: Ordered Results No data available for [...] PB tendon Lt calcaneus 2011 L [facility] 03/19/10 Colonoscopy 09/24/07 Cystoscopy and hydrodistension 01/14/07 Atrial fib. - conversion Gall Bladder Knee replacement1 1Left knee Social History Social History Type Response Smoking Status Never smoker Assessment and Plan No data available for this section
--- OUTSIDE RECORDS SUMMARY | 2017-07-17 19:20 | External Medical Summary | Referral Summary ---
:1935 Author Organization [facility] Address [address] [place] [address] [place] [address] Care Team Providers Name Role Phone Asa Dejesus Mo Primary Care Physician Encounter VC Date(s): 10/25/14 - 10/25/14 [facility] [address] [place] [address] [place] [phone] [place] Discharge Diagnosis: BPH [...] clots - 12/1999 - 02/19/14 Resolved lungs/legs(Confirmed) jail use Active anticoagul(Confirmed)1 Hypertension(Confirmed) Resolved Hypertensive heart [...] # 90 tabs, 1 Refill(s), Pharmacy: [facility] # [id number], 1 tabs Oral Daily Start Date: 02/23/15 Status: Orderedaspirin 81 mg oral tablet 1 tabs, Oral, Daily, # 30 tabs, 0 Refill(s) Start Date: 07/11/13 Status: OrderedCoumadin 2 mg oral tablet See Instructions, PT TAKES 2MG ALT WITH 3MG, # 180 tabs, 0 Refill(s), Pharmacy: [facility] #[id number], PT TAKES 2MG ALT WITH 3MG Start Date: 02/23/15 Status: OrderedCrestor 5 mg oral tablet 5 mg 1 tabs, Oral, Daily, # 30 tabs, 6 Refill(s), Pharmacy: [facility] # [id number], 1 tabs Oral Daily Start Date: 03/23/15 Status: OrderedProscar 5 mg oral tablet See Instructions, TAKE ONE TABLET BY MOUTH EVERY NIGHT AT BEDTIME, # 30 tabs, 4 Refill(s), eRx: [facility] #[id number], TAKE ONE TABLET BY MOUTH EVERY NIGHT AT BEDTIME Start Date: 03/21/15 Status: OrderedTriCor 48 mg oral tablet 48 mg 1 tabs, Oral, Daily, # 30 tabs, 6 Refill(s), Pharmacy: [facility] # [id number], 1 tabs Oral Daily Start Date: 03/23/15 Status: Ordered Results No data available for [...] Follow Up With: Where: When: Dmitry Rosenberg [address] [place] [address] Dr; [place], [place] [id number] Business (1) Within 3 to 5 days Comments: Follow Up With: Where: When: Cornell Jo [address] [place] [address] Drive; [place] [address] Business (1) In 1 year [...] visit. Ordered: Office Visit Level 3 Est 50364 Prostate Specific Antigen
--- OUTSIDE RECORDS SUMMARY | 2017-07-17 19:20 | External Medical Summary | Referral Summary ---
:1935 Author Organization [facility] [place] [address] Care Team Providers Name Role Phone Asa Dejesus V Primary Care Physician Encounter VC Date(s): 02/22/16 - 02/22/16 [facility] [place] [phone] Discharge Diagnosis: BPH with obstruction/lower urinary tract symptoms Discharge Diagnosis: Atrial fibrillation Discharge Diagnosis: Mixed hyperlipidemia Discharge Diagnosis: Chronic kidney disease, stage 3 Discharge Diagnosis: Warfarin anticoagulation Discharge Diagnosis: Benign essential hypertension Discharge Diagnosis: Venous stasis dermatitis Discharge Disposition: 01-Home or Self Care Attending Physician: Asa Dejesus MD Admitting Physician: Asa Dejesus MD Vital Signs Most recent to oldest [Reference Range]: 1 Peripheral Pulse Rate [60-100 bpm] 78 bpm (02/22/16 9:17 AM) Blood Pressure [90-140/60-90 mmHg] 120/70 mmHg (02/22/16 9:17 AM) Problem List Condition Effective Dates Status Health Status Informant Episode acute renal failure due to 08/01/09 - 02/19/14 Resolved NSAID+JENNIFER(Confirmed) Atrial fibrillation Active (disorder)(Confirmed) Benign essential hypertension Active (disorder)(Confirmed) Hx gross bladder < 02/16/15 Resolved trabeculation(Confirmed) BPH with obstruction/lower urinary Active tract symptoms(Confirmed) Chronic kidney disease, stage Active 3(Confirmed) Chronic kidney disease stage 3 Resolved (disorder)(Confirmed) Ac DVT/embl low ext NOS(Confirmed) Active Blood clots - 12/1999 - 02/19/14 Resolved lungs/legs(Confirmed) Venous stasis Active dermatitis(Confirmed) Warfarin Active anticoagulation(Confirmed) rn long term care use < 02/19/14 Resolved [...] DAILY, # 90 tabs, 1 Refill(s), eRx: [facility] #[id number], TAKE ONE TABLET BY MOUTH DAILY Start Date: 10/02/15 Status: Orderedaspirin 81 mg oral tablet 1 tabs, Oral, Daily, # 30 tabs, 0 Refill(s) Start Date: 07/11/13 Status: OrderedCrestor 5 mg oral tablet 5 mg 1 tabs, Oral, Daily, # 30 tabs, 6 Refill(s), Pharmacy: [facility] # [id number], 1 tabs Oral Daily Start Date: 09/29/15 Status: Orderedfenofibrate 48 mg oral tablet 48 mg 1 tabs, Oral, Daily, # 30 tabs, 6 Refill(s), Pharmacy: [facility] # [id number], 1 tabs Oral Daily Start Date: 09/29/15 Status: Orderedfinasteride 5 mg oral tablet See Instructions, TAKE ONE TABLET BY MOUTH EVERY NIGHT AT BEDTIME, # 30 tabs, 5 Refill(s), eRx: [facility] #[id number], TAKE ONE TABLET BY MOUTH EVERY NIGHT AT BEDTIME Start Date: 10/02/15 Status: OrderedMiscellaneous DME DME Item ORTHOTIC INSERTS FOR SHOES, See Instructions, # 2 Each, 0 Refill(s), Supply Start Date: 10/20/15 Status: Orderedwarfarin 2 mg oral tablet See Instructions, PT TAKES 3MG 3 DAYS AND 2MG 4 DAYS AWEEK, # 180 tabs, 0 Refill (s), Pharmacy: [facility] #[id number], PT TAKES 3MG 3 DAYS AND 2MG 4 DAYS AWEEK Start Date: 01/11/16 Status: Ordered Results Coagulation Most recent to oldest [Reference Range]: 1 PT Venous (02/22/16 2:00 PM) INR [0.8-1.2] 2.1 1 *HI* (02/22/16 2:00 PM) 1Result Comment: Normal (no anticoagulant): 0.8 - 1.2 Units Routine Therapeutic Range: 2.0 - 3.0 Units High Risk Therapeutic Range: 2.5 - 3.5 UnitsChemistry Most recent to oldest [Reference Range]: 1 Sodium Lvl [135-144 mEq/L] 143 mEq/L (02/22/16 2:00 PM) Potassium Lvl [3.5-5.2 mEq/L] 4.3 mEq/L (02/22/16 2:00 PM) Chloride [99-111 mEq/L] 109 mEq/L (02/22/16 2:00 PM) CO2 [23-31 mEq/L] 25 mEq/L (02/22/16 2:00 PM) AGAP [3-20] 9 (02/22/16 2:00 PM) BUN [8-26 mg/dL] 26 mg/dL (02/22/16 2:00 PM) Glucose Lvl [70-99 mg/dL] 114 mg/dL *HI* (02/22/16 2:00 PM) Creatinine Lvl [0.72-1.25 mg/dL] 1.98 mg/dL *HI* (02/22/16 2:00 PM) eGFR [>60 mL/min] 33 mL/min 1 *ABN* (02/22/16 2:00 PM) Calcium Lvl [8.9-10.5 mg/dL] 9.0 mg/dL (02/22/16 2:00 PM) 1Result Comment: Multiply eGFR results by 1.21 for race. Immunizations Given and Recorded Vaccine Date Status [...] PB tendon Lt calcaneus 2011 L TKA [facility] 03/19/10 Colonoscopy 09/24/07 Cystoscopy and hydrodistension 01/14/07 Atrial fib. - conversion Gall Bladder Knee replacement1 1Left knee Social History Social History Type Response Smoking Status Never smoker Assessment and Plan Extracted from: Title: CRMMP Author: Asa Dejesus MD Date: 02/22/16 Impression and Plan Diagnosis BPH with obstruction/lower urinary tract symptoms ([id number]-DP N40.1, Discharge, Medical). Atrial fibrillation (UKJ76-SJ I48.91, Discharge, Medical). Warfarin anticoagulation (ONT68-LZ Z79.01, Discharge, Medical). Benign essential hypertension (VZV72-GT I10, Discharge, Medical). Chronic kidney disease, stage 3 (SGR80-IF N18.3, Discharge, Medical). Mixed hyperlipidemia (DZG63-UH E78.2, Discharge, Medical). Venous stasis dermatitis (WWG76-DL I83.10, Discharge, Medical). Orders Orders (Selected) Outpatient Orders Future (On Hold) BMP: BMP: Fasting Lipid Profile: INR (PT): .
--- OUTSIDE RECORDS SUMMARY | 2017-07-17 19:20 | External Medical Summary | Referral Summary ---
:1935 Author Organization [facility], Urology [address] [place] [address] Care Team Providers Name Role Phone Dmitry Rosenberg Primary Care Physician Encounter VC Date(s): 10/25/14 - 10/25/14 [facility], Urology [address] [place] [address] [place] [phone] [place] Discharge Diagnosis: BPH [...] Active Blood clots - lungs/legs(Confirmed) 12/1999 Active [facility] use anticoagul(Confirmed)1 Active Hypertension(Confirmed) Resolved Hypertensive heart [...] Daily, # 90 tabs, 1 Refill(s), Pharmacy: [facility] # [id number], 1 tabs Oral Daily Start Date: 10/10/14 Status: Orderedaspirin 81 mg oral tablet 1 tabs, Oral, Daily, # 30 tabs, 0 Refill(s) Start Date: 07/11/13 Status: OrderedCoumadin 2 mg oral tablet See Instructions, TAKE ONE AND ONE-HALF TABLET BY MOUTH EVERY DAY OR DIRECTED , # 180 tabs, 9 Refill(s), eRx: [facility] #[id number], TAKE ONE AND ONE-HALF TABLET BY MOUTH EVERY DAY OR DIRECTED Start Date: 02/07/14 Status: OrderedCrestor 5 mg oral tablet See Instructions, TAKE ONE TABLET BY MOUTH DAILY, # 30 tabs, eRx: [facility] #[id number], TAKE ONETABLET BY MOUTH DAILY Start Date: 11/17/14 Status: OrderedProscar 5 mg oral tablet See Instructions, TAKE ONE TABLET BY MOUTH EVERY NIGHT AT BEDTIME, # 30 tabs, 4 Refill(s), eRx: [facility] #[id number], TAKE ONE TABLET BY MOUTH EVERY NIGHT AT BEDTIME Start Date: 10/31/14 Status: OrderedTriCor 48 mg oral tablet See Instructions, TAKE ONE TABLET BY MOUTH DAILY FOR HIGH TRIGLYCERIDES., # 30 tabs, 2 Refill(s), eRx: [facility] #[id number], TAKE ONE TABLET BY MOUTH DAILY FOR [...] PB tendon Lt calcaneus 2011 L TKA [facility] 03/19/10 Colonoscopy 09/24/07 Cystoscopy and hydrodistension 01/14/07 Atrial fib. - conversion Gall Bladder Knee replacement1 1Left knee Social History Social History Type Response Smoking Status Never smoker Assessment and Plan Extracted from: Title: Ambulatory Patient Education Author: Cornell Jo JR, MD Date: Follow Up With: Where: When: Dmitry Rosenberg [address] [place] [address] Dr; [place] [address] Business (1) Within 3 to 5 days Comments: Follow Up With: Where: When: Cornell Erwin[address]; [place] [address] Business (1) In 1 year [...] visit. Ordered: Office Visit Level 3 Est 46334 Prostate Specific Antigen
--- OUTSIDE RECORDS SUMMARY | 2017-07-17 19:20 | External Medical Summary | Referral Summary ---
:1935 Author Organization [facility] [place] [address] Care Team Providers Name Role Phone Asa Dejesus V Primary Care Physician Encounter VC Date(s): 02/16/15 - 02/16/15 [facility] [place] [phone] [place] Discharge Diagnosis: Chronic kidney disease, stage 3 Discharge Diagnosis: Atrial fibrillation (disorder) Discharge Diagnosis: Mixed hyperlipidemia Discharge Diagnosis: correction use of drug Discharge Diagnosis: Benign essential hypertension Discharge Disposition: 01-Home or Self Care Attending Physician: Asa Dejesus MD Admitting Physician: Asa Dejesus MD Vital Signs Most recent to oldest [Reference Range]: 1 Temperature Tympanic [36.6-38.1 degC] 35.8 degC *LOW* (02/16/15 8:33 AM) Peripheral Pulse Rate [60-100 bpm] 68 bpm (02/16/15 8:33 AM) Blood Pressure [90-140/60-90 mmHg] 113/76 mmHg (02/16/15 8:33 AM) Problem List Condition Effective Dates [...] Daily, # 90 tabs, 1 Refill(s), Pharmacy: [facility] # [id number], 1 tabs Oral Daily Start Date: 10/10/14 Status: Orderedaspirin 81 mg oral tablet 1 tabs, Oral, Daily, # 30 tabs, 0 Refill(s) Start Date: 07/11/13 Status: OrderedCoumadin 2 mg oral tablet See Instructions, TAKE ONE AND ONE-HALF TABLET BY MOUTH EVERY DAY OR DIRECTED , # 180 tabs, 9 Refill(s), eRx: [facility] #[id number], TAKE ONE AND ONE-HALF TABLET BY MOUTH EVERY DAY OR DIRECTED Start Date: 02/07/14 Status: OrderedCrestor 5 mg oral tablet See Instructions, TAKE ONE TABLET BY MOUTH DAILY, # 30 tabs, eRx: [facility] #[id number], TAKE ONETABLET BY MOUTH DAILY Start Date: 01/23/15 Status: OrderedProscar 5 mg oral tablet See Instructions, TAKE ONE TABLET BY MOUTH EVERY NIGHT AT BEDTIME, # 30 tabs, 4 Refill(s), eRx: [facility] #[id number], TAKE ONE TABLET BY MOUTH EVERY NIGHT AT BEDTIME Start Date: 10/31/14 Status: OrderedTriCor 48 mg oral tablet See Instructions, TAKE ONE TABLET BY MOUTH DAILY FOR HIGH TRIGLYCERIDES., # 30 tabs, eRx: [facility] #[id number], TAKE ONE TABLET BY MOUTH DAILY FOR [...] PB tendon Lt calcaneus 2011 L TKA [facility] 03/19/10 Colonoscopy 09/24/07 Cystoscopy and hydrodistension 01/14/07 Atrial fib. - conversion Gall Bladder Knee replacement1 1Left knee Social History Social History Type Response Smoking Status Never smoker Assessment and Plan Extracted from: Title: Get acquainted Author: Asa Dejesus MD Date: 02/16/15 Assessment/Plan Atrial fibrillation (disorder) Benign essential hypertension Chronic kidney disease, stage 3 correction use of drug Mixed hyperlipidemia Overall he seems to be stable and we will continue current medications. He follows with Dr. Jo regarding urologic issues and BPH. We will check monthly INR readings and we discussed anticoagula tion management. Follow-up 6 months or sooner if needed.
--- OUTSIDE RECORDS SUMMARY | 2017-07-17 19:20 | External Medical Summary | Referral Summary ---
:1935 Author Organization [facility] [place] [address] Care Team Providers Name Role Phone Asa Dejesus V Primary Care Physician Encounter VC Date(s): 01/10/15 - 01/10/15 [address] [facility] [place] [phone] [place] Discharge Diagnosis: Benign essential hypertension Discharge Diagnosis: Disease Discharge Disposition: 01-Home or Self Care Attending Physician: Dmitry Rosenberg MD Admitting Physician: Dmitry Rosenberg MD Vital Signs Most recent to oldest [Reference Range]: 1 Temperature Tympanic [36.6-38.1 degC] 36.0 degC *LOW* (01/10/15 9:03 AM) Peripheral Pulse Rate [60-100 bpm] 60 bpm (01/10/15 9:03 AM) Respiratory Rate [14-20 br/min] 16 br/min (01/10/15 9:03 AM) Blood Pressure [90-140/60-90 mmHg] 130/64 mmHg (01/10/15 9:03 AM) Problem List Condition Effective Dates Status [...] Active Blood clots - lungs/legs(Confirmed) 12/1999 Active 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 use anticoagul(Confirmed)1 Active Hypertension(Confirmed) Resolved Hypertensive heart [...] Daily, # 90 tabs, 1 Refill(s), Pharmacy: [facility] # [id number], 1 tabs Oral Daily Start Date: 10/10/14 Status: Orderedaspirin 81 mg oral tablet 1 tabs, Oral, Daily, # 30 tabs, 0 Refill(s) Start Date: 07/11/13 Status: OrderedCoumadin 2 mg oral tablet See Instructions, TAKE ONE AND ONE-HALF TABLET BY MOUTH EVERY DAY OR DIRECTED , # 180 tabs, 9 Refill(s), eRx: [facility] #[id number], TAKE ONE AND ONE-HALF TABLET BY MOUTH EVERY DAY OR DIRECTED Start Date: 02/07/14 Status: OrderedCrestor 5 mg oral tablet See Instructions, TAKE ONE TABLET BY MOUTH DAILY, # 30 tabs, eRx: [facility] #[id number], TAKE ONETABLET BY MOUTH DAILY Start Date: 12/21/14 Status: OrderedProscar 5 mg oral tablet See Instructions, TAKE ONE TABLET BY MOUTH EVERY NIGHT AT BEDTIME, # 30 tabs, 4 Refill(s), eRx: [facility] #[id number], TAKE ONE TABLET BY MOUTH EVERY NIGHT AT BEDTIME Start Date: 10/31/14 Status: OrderedTriCor 48 mg oral tablet See Instructions, TAKE ONE TABLET BY MOUTH DAILY FOR HIGH TRIGLYCERIDES., # 30 tabs, eRx: [facility] #[id number], TAKE ONE TABLET BY MOUTH DAILY FOR HIGH TRIGLYCERIDES. Start Date: 12/21/14 Status: Ordered Results Coagulation Most recent to oldest [Reference Range]: 1 PT Venous (01/10/15 9:45 AM) INR [0.8-1.2] 2.5 1 *HI* (01/10/15 9:45 AM) 1Result Comment: Normal (no anticoagulant): 0.8 - 1.2 Units Routine Therapeutic Range: 2.0 - 3.0 Units High Risk Therapeutic Range: 2.5 - 3.5 UnitsChemistry Most recent to oldest [Reference Range]: 1 Sodium Lvl [135-144 mEq/L] 143 mEq/L (01/10/15 9:45 AM) Potassium Lvl [3.5-5.2 mEq/L] 3.6 mEq/L (01/10/15 9:45 AM) Chloride [99-111 mEq/L] 109 mEq/L (01/10/15 9:45 AM) CO2 [23-31 mEq/L] 25 mEq/L (01/10/15 9:45 AM) AGAP [3-20] 9 (01/10/15 9:45 AM) BUN [8-26 mg/dL] 27 mg/dL *HI* (01/10/15 9:45 AM) Glucose Lvl [70-99 mg/dL] 102 mg/dL *HI* (01/10/15 9:45 AM) Creatinine Lvl [0.72-1.25 mg/dL] 1.28 mg/dL *HI* (01/10/15 9:45 AM) eGFR [>60 mL/min] 54 mL/min 1 *ABN* (01/10/15 9:45 AM) Calcium Lvl [8.9-10.5 mg/dL] 9.2 mg/dL (01/10/15 9:45 AM) 1Result Comment: Multiply eGFR results by 1.21 for race. Immunizations Vaccine Date Refusal Reason tetanus/diphth/pertuss (Tdap) [...] PB tendon Lt calcaneus 2011 L TKA [facility] 03/19/10 Colonoscopy 09/24/07 Cystoscopy and hydrodistension 01/14/07 Atrial fib. - conversion Gall Bladder Knee replacement1 1Left knee Social History Social History Type Response Smoking Status Never smoker Assessment and Plan Extracted from: Title: Office Visit Note Author: Dmitry Rosenberg MD Date: 01/10/15 Assessment/Plan Ac DVT/embl low ext NOS, Disease Ordered: PT Atrial fibrillation (disorder) Benign essential hypertension Ordered: Comprehensive Metabolic Panel Chronic kidney disease, stage 3 Ordered: Basic Metabolic Panel Pure hypercholesterolemia Plan: I think your medical problems are stable at this time. 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 We'll continue the current medications for now. You should have a med kashif ck up in 6 months. We discussed the need to find a new primary care doctor.
--- OUTSIDE RECORDS SUMMARY | 2017-07-17 19:20 | External Medical Summary | Referral Summary ---
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)1 Active Hypertension(Confirmed) Resolved [...] Daily, # 90 tabs, 1 Refill(s), Pharmacy: [facility] # [id number], 1 tabs Oral Daily Start Date: 10/10/14 Status: Orderedaspirin 81 mg oral tablet 1 tabs, Oral, Daily, # 30 tabs, 0 Refill(s) Start Date: 07/11/13 Status: OrderedCoumadin 2 mg oral tablet See Instructions, TAKE ONE AND ONE-HALF TABLET BY MOUTH EVERY DAY OR DIRECTED , # 180 tabs, 9 Refill(s), eRx: [facility] #[id number], TAKE ONE AND ONE-HALF TABLET BY MOUTH EVERY DAY OR DIRECTED Start Date: 02/07/14 Status: OrderedCrestor 5 mg oral tablet See Instructions, TAKE ONE TABLET BY MOUTH DAILY, # 30 tabs, eRx: [facility] #[id number], TAKE ONETABLET BY MOUTH DAILY Start Date: 11/17/14 Status: OrderedProscar 5 mg oral tablet See Instructions, TAKE ONE TABLET BY MOUTH EVERY NIGHT AT BEDTIME, # 30 tabs, 4 Refill(s), eRx: [facility] #[id number], TAKE ONE TABLET BY MOUTH EVERY NIGHT AT BEDTIME Start Date: 10/31/14 Status: OrderedTriCor 48 mg oral tablet See Instructions, TAKE ONE TABLET BY MOUTH DAILY FOR HIGH TRIGLYCERIDES., # 30 tabs, 2 Refill(s), eRx: [facility] #[id number], TAKE ONE TABLET BY MOUTH DAILY FOR [...] PB tendon Lt calcaneus 2011 L TKA [facility] 03/19/10 Colonoscopy 09/24/07 Cystoscopy [...]
[2017-07-17] MEDS ORDERED: PHYTONADIONE 5 MG/2.5 ML ORAL LIQUID PO ONE (19:32)
--- NOTE | 2017-07-17 19:39 | History & Physical Report ---
History of Present Illness Date: 07/18/17 Chief complaint: Right hip fracture HPI: 81 M presents to the [facility] emergency department tonight after missing the last step while ambulating down a flight of stairs. He landed on his right hip and was brought to the ER for further evaluation. Unfortunately, he has sustained a right intertrochanteric hip fracture. EKG and CXR done in the ER. He takes coumadin with a history of a fib. He has held his dose for the last 3 days as an outpatient check was apparently high. His INR is actually subtherapeutic tonight at 1.89. At orthopedist's request, he will receive a dose of vitamin K with the anticipation of going to the OR tomorrow for surgical intervention This patient was seen this evening via the use of telemedicine technology Review of Systems All systems PM: 10-point ROS was reviewed, no additional remarkable complaints except Past Medical History Medical History Updates: Atrial fibrillation. Hypertension. BPH. Hypercholesterolemia Family History Updates: Non contributory due to age Family History: As Above - Social History Smoking status: Never smoker Medications Home Medications Medication Instructions Recorded Confirmed Type Amlodipine [Norvasc] 10 mg PO DAILY 07/17/17 07/17/17 History Aspirin [Adult Low Dose Aspirin EC] 81 mg PO DAILY 07/17/17 07/17/17 History Fenofibrate Nanocrystallized 48 mg PO DAILY 07/17/17 07/17/17 History [Fenofibrate] Finasteride [Proscar] 5 mg PO HS 07/17/17 07/17/17 History Rosuvastatin [Crestor] 5 mg PO HS 07/17/17 07/17/17 History Warfarin [Coumadin] 2 mg PO .QOD 07/17/17 07/17/17 History Warfarin [Coumadin] 3 mg PO .QOD 07/17/17 07/17/17 History Allergies Allergy/AdvReac Type Severity Reaction Status Date / Time ezetimibe Allergy Unknown Verified 07/17/17 18:05 simvastatin Allergy Unknown Verified 07/17/17 18:05 Exam Vital Signs: Temperature 98.2 F 07/17/17 17:51 Pulse Rate 64 07/17/17 17:51 Respiratory Rate 19 07/17/17 17:51 Blood Pressure 135/77 07/17/17 17:51 Pulse Oximetry 95 07/17/17 17:51 Telemetry Rhythm: A-fib Height/Weight/BMI: Height 1.8 m Weight 95.2 kg - Constitutional Present: no acute distress - Routine HEENT Exam Head: Present: normocephalic, atraumatic Eye: Present: EOMI, PERRL - Routine Respiratory Exam Present: CTA bilaterally - Routine Cardiovascular Exam Present: irregularly irregular - Routine Abdominal Exam Present: soft, non tender - Routine Extremities Exam Present: edema (some edema in the left leg which he states is chronic) - Routine Skin Exam Present: intact - Routine Neurological Exam Present: alert, oriented X3 Results - Labs CBC & Chem 7: 07/18/17 04:27 07/18/17 04:27 Assessment and Plan Assessment and Plan: 1. Acute right intertrochanteric hip fracture 2. A fib, rate controlled 3. Chronic anticoagulation use 4. HTN 5. BPH 6. HLD Plan Patient has been admitted to the hospitalist team at orthopedist's request. Home meds have been reconciled. He will receive 5 mg of vitamin K PO tonight at orthopedist's request. Will keep NPO after MN. Will provide prn analgesia for pain assistance. Monitor on Tele. Daytime hospitalist will round in AM and make further adjustments as necessary. - Physician Narrative Physician: Marguerite Lr MD Narrative: Date: 07/18/17 Time: [address] Black and addendum by Anna Hyman APRN reviewed; patient evaluated in preop for he describes missing a step leading to a fall without head injury or loss of consciousness. He landed on his right hip having immediate pain and inability to stand. EMS transferred to the emergency room where right femoral neck fracture was identified. Patient reports pain control is adequate at this time and he is tentatively scheduled for surgical stabilization in the next 1-2 hours. Outpatient records report history of chronic kidney disease-stage III. Patient is alert and appears comfortable. Respirations nonlabored, good airflow, breath sounds clear anteriorly Irregular cardiac rhythm with normal S1 and S2, no murmur appreciated. Abdomen soft, nontender Extremities without edema, sensation intact bilateral feet, patient wiggles toes symmetrically on both feet. EKG with A. fib and multiple PVCs with occasional triplets but no acute ST changes evident. Telemetry at present with occasional PVCs but significantly less ectopy than resetting EKG. Both potassium and magnesium are normal. INR 1.71 at 4 AM, patient received vitamin K yesterday evening-discussed with ortho Creatinine 1.9-1.4 Chest x-ray reviewed by myself demonstrating no acute disease; x-rays of the pelvis also reviewed by myself demonstrating the above described right femoral neck fracture. Medically stable to proceed with surgery as planned. Ectopy is ongoing postoperatively will discuss with cardiology, may benefit from addition of beta willian to regimen. Hospital Course Summary Disclaimer: The visit summary below is not to be considered part of the above Progress Note. 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 He missed the last concrete step (which was uneven), and landed on his right hip and right elbow. He got up and sat on the step and realized he couldn't stand up. He did not hit his head or lose consciousness. Other than right elbow contusion/ abrasion he denies other injury. Furthermore, he's been in good health and denies any illnesses or cardiac symptoms. He and his state that he was outside working all day yesterday and he was probably a bit dehydrated. His friend whom he was working with called 911 and he was transferred to [facility] ED where he was dx with R fem neck fx. EKG showed A-fib - he follows with Dr. Seymour Goodrich for this. He received Vit K for INR of 1.85. Labs suggested dehydration with Na of 157, cr 1.9. On repeat labs and post-IVF his Na improved to 145 and Cr 1.4. Tele shows A-fib with occ PVC, rates 80-90s. He was admitted for surgical fixation of right hip fx. Dr. Ferreira planning on sx this am. ROS: positive for R elbow/hip pain. R leg shorter than L. 10-point ROS otherwise neg. PMH: A-fib anticoag. on Coumadin; HTN; BPH; HLD SX: L knee replacement;; cardiac cath in 1994, clean; failed cardioversion attempt around 2009 FH: Father at age 87, had Parkinson's. Mother of CHF, age 86. SH: Nonsmoker, nondrinker. 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 PCP: Dr. Dejesus. EXAM: Gen: A&O x3, NAD, pleasant, coop. HEENT: PERRL, sclera anicteric, noninjected; MM moist; face slightly flushed; no cerv lymphadenopathy CV: irregularly irreg. Lungs: clear anteriorly Abd: soft, nontender + BS Ext: R elbow contusion/abrasion; R leg shortening; pulses intact Neuro: grossly intact Psych: calm, normal affect Assessment R fem neck fx R elbow contusion/abrasions Hypernatremia, POA KOBE, POA Mild normocytic anemia, not POA A-fib on Coumadin HTN HLD BPH Plan Medically cleared for sx - hx of a-fib and anticoagulation presents at least mild-mod risk. Postop orders per ortho. Monitor hgb Cont IVF for KOBE and hypernatremia which are improving. resume home meds & Coumadin postop - pharm consult Full code D/W Dr. Lr
[2017-07-17] MEDS ORDERED: ONDANSETRON 4 MG/2 ML INJECTION IVP PRN (20:23)
[2017-07-17] MEDS ORDERED: HYDROCODONE/APAP 5mg/325mg TABLET PO PRN (20:23)
[2017-07-17] MEDS ORDERED: MORPHINE SULFATE 4mg INJECTION IVP PRN (20:23)
--- NOTE | 2017-07-18 08:31 | XRay Report ---
Indication: preop hip fracture PROCEDURE: XR chest 1V: Encounter: Initial Comparison: None FINDINGS: The lungs are clear. There is no abnormal airspace opacity, pleural effusion or pneumothorax identified. Cardiac silhouette is borderline enlarged. Tortuous ectatic thoracic aorta. Pulmonary vascularity is normal. No significant skeletal abnormality is seen. IMPRESSION: No acute cardiopulmonary abnormality. .
--- NOTE | 2017-07-18 08:31 | XRay Report ---
Indication: fall from 6 inches right hip pain deformity PROCEDURE: XR pelvis w/ 2 view RT hip: Encounter: Initial Comparison: None Findings: Mildly comminuted and displaced intertrochanteric right femoral fracture with foreshortening. No additional acute fracture or dislocation seen. Impression: Closed posttraumatic right femoral neck fracture. .
--- NOTE | 2017-07-18 08:34 | Orthopedic Consult Note ---
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 He had immediate right hip pain and was brought to [facility] [place] for evaluation. X-rays in ER showed a displaced IT fracture of the right hip. Pt was admitted for surgical treatment of this injury. He is on Coumadin for A Fib. Denies LOC or striking his head during the fall. The right elbow was scraped but he denies other injury. Pt has been in his normal state of health. He has some chronic bladder problems and was recently started on a medicine in place of Flomax. Review of Systems - Constitutional Constitutional: Absent: chills, fever(s), headache(s), malaise, night sweats - EENT Ears, nose, mouth, throat: Absent: headaches, lightheadedness, head injury - Cardiovascular Cardiovascular: Absent: chest pain, palpitations, syncope, dyspnea on exertion, orthopnea - Respiratory Respiratory: Absent: cough, dyspnea - Gastrointestinal Gastrointestinal: Present: constipation (Chronic issue for him.). Absent: abdominal pain, change in bowel habits - Genitourinary Genitourinary General: Absent: fever(s) Genitourinary Male: Present: nocturia (some times 4-5 times a night.) - Musculoskeletal Musculoskeletal: Present: as per HPI, other (Right elbow abrasion with the fall. No pain with ROM.) - Integumentary/Breasts Integumentary: Absent: rash - Neurological Neurological: Absent: dizziness, numbness, paresthesias, tingling, paralysis/ paresis [facility] Patient Stated Medical History Cardiac Arrhythmia Yes Hypertension Yes Shingles Yes Medical History Updates: Atrial fibrillation. Hypertension. BPH. Hypercholesterolemia Family History Updates: Non contributory due to age - Social History Smoking status: Never smoker Medications Home Medications Medication Instructions Recorded Confirmed Type Amlodipine [Norvasc] 10 mg PO DAILY 07/17/17 07/17/17 History Aspirin [Adult Low Dose Aspirin EC] 81 mg PO DAILY 07/17/17 07/17/17 History Fenofibrate Nanocrystallized 48 mg PO DAILY 07/17/17 07/17/17 History [Fenofibrate] Finasteride [Proscar] 5 mg PO HS 07/17/17 07/17/17 History Rosuvastatin [Crestor] 5 mg PO HS 07/17/17 07/17/17 History Warfarin [Coumadin] 2 mg PO .QOD 07/17/17 07/17/17 History Warfarin [Coumadin] 3 mg PO .QOD 07/17/17 07/17/17 History Allergies Allergy/AdvReac Type Severity Reaction Status Date / Time ezetimibe Allergy Unknown Verified 07/17/17 18:05 simvastatin Allergy Unknown Verified 07/17/17 18:05 Exam - Constitutional Vital Signs: Temperature 98.5 F 07/18/17 07:54 Pulse Rate 75 07/18/17 07:54 Respiratory Rate 16 07/18/17 07:54 Blood Pressure 134/86 07/18/17 07:54 Pulse Oximetry 95 07/18/17 07:54 General: cooperative, healthy appearing, no acute distress, well developed Nutritional Appearance: well nourished Orientation: alert, oriented x3 - Gait Assistive Device: other (Pt examined in his hospital bed. Not mobile at this time.) - Psych Mood: normal Affect: normal Attitude: cooperative - RUE General: no obvious deformity Skin: abrasion (right elbow. No open wounds.) Shoulder Range of Motion: within normal limits Elbow Range of Motion: within normal limits Wrist Range of Motion: within normal limits Neurological: no deficits - RLE Skin: no lesions Hip Range of Motion: hip ROM painful Ankle Range of Motion: normal ROM Neurological: no deficits, normal to light touch Vascular: dorsalis pedis pulse within normal limits Right Lower Extremity comments: Slight shortening. Rotation normal at this time. - LLE General: no obvious deformity Neurological: no deficits Vascular: dorsalis pedis pulse within normal limits - Labs Result Diagrams: 07/18/17 04:27 07/18/17 04:27 Abnormal lab results 07/18/17 07/18/17 07/18/17 Range/Units 04:27 04:27 04:27 RBC 4.07 L (4.50-5.90) M/MM3 Hgb 12.8 L D (13.5-17.5) GM/DL Hct 37.5 L D (41-53) % MPV 9.1 L (9.4-12.4) UM3 Neut % (Auto) 81.2 H (33-66) % Lymph % (Auto) 11.2 L (23-45) % INR 1.71 H (0.92-1.18) Sodium 145 H (134-144) MEQ/L Chloride 108 H (98-107) MEQ/L BUN 21.0 H (9-20) MG/DL Glucose 151 H (75-110) MG/DL Calculated Osmolality 285 H (261-280) MOSM/KG H & H 07/18/17 Range/Units 04:27 Hgb 12.8 L D (13.5-17.5) GM/DL Hct 37.5 L D (41-53) % Coagulation 07/18/17 Range/Units 04:27 INR 1.71 H (0.92-1.18) Impression and Recommendation (1) Intertrochanteric fracture of right hip Current visit: Yes Qualifiers: Encounter type: initial encounter Fracture type: closed Fracture alignment: nondisplaced Qualified Code(s): S72.144A - Nondisplaced intertrochanteric fracture of right femur, initial encounter for closed fracture Status: Acute Plan ORIF with Gamma nail on 07/18/17 if medically cleared and INR in acceptable range. Dr Ferreira met with the pt and his this AM. They discussed the nature of his injury and recommended surgical fixation. Discussed risk and possible complications of surgery as well as the expected post operative course. Questions were answered to their satisfaction. The hip was marked in anticipation of surgery. Hospital Course Summary Disclaimer: The visit summary below is not to be considered part of the above Progress Note.
[2017-07-18] MEDS ORDERED: CEFAZOLIN 1 G INJECTION IVP ONE (08:56)
[2017-07-18] MEDS: SALINE FLUSH 10ml SYRINGE IVF PRN ×2 (08:58→21:11)
[2017-07-18] MEDS: NOZIN NASAL SWAB NAS ONE ×3 (08:58→09:01)
[2017-07-18] MEDS: LR 1,000 ML IV SCH ×2 (08:58→13:53)
[2017-07-18] MEDS ORDERED: KETAMINE 500 MG/10 ML INJECTION ONE (09:27)
[2017-07-18] MEDS ORDERED: FentaNYL 250 MCG/5 ML INJECTION ONE (09:27)
[2017-07-18] MEDS ORDERED: PROPOFOL 500 MG/50 ML VIAL ONE ×2 (09:27→11:20)
[2017-07-18] MEDS ORDERED: BUPIVACAINE 0.25% (2.5mg/ml) PF 30ml INJECTION ONE (09:28)
[2017-07-18] MEDS ORDERED: LIDOCAINE 2% (100mg/5mL) 5ml PF SDV ONE (09:28)
[2017-07-18] MEDS ORDERED: LIDOCAINE 1% (10mg/ml) 30ml SDV INJ ONE (09:28)
[2017-07-18] MEDS ORDERED: WARFARIN - PHARMACY CONSULT MC ONE (09:35)
[2017-07-18] MEDS ORDERED: ONDANSETRON 4 MG/2 ML INJECTION ONE (09:39)
[2017-07-18] MEDS ORDERED: DEXAMETHASONE 4 MG/ML INJECTION ONE (09:40)
--- NOTE | 2017-07-18 10:08 | Pharmacy Consult ---
Pharmacy Consult-Warfarin - Laboratory Information 07/18/17 07/18/17 04:27 04:27 Hgb 12.8 L D Hct 37.5 L D INR 1.71 H - Consult Information COUMADIN CONSULT (Initial): Dx: A. Fib Baseline INR = 1.71. Will give Warfarin 4mg today. Thank you.
--- NOTE | 2017-07-18 10:33 | Progress Note ---
Progress Note: Mr. Butterfield was admitted overnight after an accidental fall resulting in right intertrochanteric fracture. Seen in consultation by Dr. Ferreira is 20 discussed the operating room today. Please refer to the addendum to admission H&P for medical clearance and updates from overnight. Stable for surgery as planned.
[2017-07-18] MEDS ORDERED: HYDROMORPHONE 2 MG/ML INJECTION IVP PRN (11:10)
[2017-07-18] MEDS ORDERED: METOCLOPRAMIDE 10mg/2ml INJECTION IVP PRN (11:10)
[2017-07-18] MEDS: BUPIV 0.25% 30ml/LIDO 1% 30ml MIXTURE ID ONE ×2 (11:25→12:29)
[2017-07-18] MEDS ORDERED: WARFARIN 4 MG TABLET PO SCH (12:00)
[2017-07-18] MEDS ORDERED: ONDANSETRON 4 MG/2 ML INJECTION IVP PRN (12:28)
[2017-07-18] MEDS ORDERED: NOZIN NASAL SWAB NAS ONE (12:28)
[2017-07-18] MEDS: NOZIN NASAL SWAB NAS SCH ×2 (12:32→21:10)
--- NOTE | 2017-07-18 12:36 | Anesthesia Postoperative Note ---
- Date and Time Date: 07/18/17 Time: 09:36 - Status Patient Participated in Evaluation: Patient Participated in Person Vital Signs: Temperature 98.6 F 07/18/17 12:20 Pulse Rate 86 07/18/17 12:25 Respiratory Rate 19 07/18/17 12:25 Blood Pressure 130/62 07/18/17 12:25 Pulse Oximetry 96 07/18/17 12:25 Respiratory Function: Airway Patent, Regular Respirations Cardiovascular Function: Regular Pulse Mental Status: Alert and Oriented Pain Intensity: 0 Hydration: IV Infusing Complications During Recover: None Apparent - Follow-Up Instructions Instructions: Per Surgeon
--- NOTE | 2017-07-18 13:26 | Remote Fluorsocopy Report ---
Indication: ORIF R HIP - GAMMA NAIL PROCEDURE: RF hip RT 2 view: Encounter: Initial Comparison: Pelvis radiographs from yesterday Findings: Eight fluoroscopic spot images are submitted for interpretation. Images show open reduction and internal fixation of the right femoral neck fracture with placement of an intramedullary nail, compression screw and distal interlocking screws. Improved alignment of the fracture fragments. Impression: Fluoroscopy as above. Fluoroscopy time is 195.3 seconds. Fluoroscopy dose is 4930 mRad. .
--- NOTE | 2017-07-18 14:37 | Operative Note ---
DATE OF OPERATION 07/18/2017 PREOPERATIVE DIAGNOSIS Right four-part intertrochanteric hip fracture. POSTOPERATIVE DIAGNOSIS Right four-part intertrochanteric hip fracture. PROCEDURE Fixation of intertrochanteric hip fracture with cephalomedullary device. SURGEON Rocky Ferreira MD [employer] VICE PRESIDENT Jerod Frazier PA-C COMPLICATIONS None ANESTHESIA TIVA DESCRIPTION OF PROCEDURE Mr. Butterfield and his right hip were identified and marked in the hospital room bed. He was brought back to the operating suite and placed under general anesthesia. He was then transferred to the fracture table. Both feet were placed in well-padded traction boots. The right leg was placed into traction and internal rotation. The left leg was placed into extension without traction. Fluoroscopic imaging was used to confirm fracture reduction in multiple views. The right lower extremity was then prepped and draped in my normal sterile fashion. Time-out was performed. I started with a 2 cm incision proximal to the greater trochanter. The proximal femur was opened over a guidewire. I then placed a long guidewire down the femoral shaft and we reamed to a 14.5. I then measured for a 400 mm nail and placed a 400 x 13 mm long gamma nail over the guide momo. The guide momo was removed. A 110 mm lag screw was then placed into a center-center location to the femoral head over a guide momo using the aiming arm. The lag screw had a good bit into bone and I did use a compression device to obtain compression at the fracture site which went well. The screw was then locked proximally and the aiming arm was removed. I then placed two locking bolts distally using perfect [place] technique through poke hole incisions from lateral to medial. Multiple fluoroscopic images were then reviewed to ensure good hardware placement and fracture reduction. All incision sites were first anesthetized with local anesthetic. All incisions were then irrigated and closed in layers. Sterile dressings were placed. He was taken out of traction and then allowed to awake from general anesthesia and taken to the recovery room under the care of Anesthesia. He tolerated the procedure well. There were no complications. MICAH
[2017-07-18 15:40] VITALS: BMI 29.2
[2017-07-18] MEDS: CEFAZOLIN 2 G in NS 100 ML IV SCH (17:11)
[2017-07-18] MEDS: FINASTERIDE 5 MG TABLET PO SCH (21:10)
[2017-07-18] MEDS: ROSUVASTATIN 5 MG TABLET PO SCH (21:10)
[2017-07-19] MEDS: CEFAZOLIN 2 G in NS 100 ML IV SCH (02:28)
[2017-07-19] MEDS: LR 1,000 ML IV SCH (05:02)
[2017-07-19] MEDS: NOZIN NASAL SWAB NAS SCH ×3 (05:03→20:47)
--- NOTE | 2017-07-19 08:40 | Pharmacy Consult ---
Pharmacy Consult-Warfarin - Laboratory Information 07/18/17 07/18/17 07/19/17 04:27 04:27 04:38 Hgb 12.8 L D 11.0 L D Hct 37.5 L D 33.0 L D INR 1.71 H 07/19/17 04:38 Hgb Hct INR 1.21 H - Consult Information INR down from yesterday after receiving 4mg of warfarin, probably due to residual effects of vitamin K from the evening of 07/17. Warfarin 4mg is ordered for today. Enoxaparin 40mg one time dose scheduled for this morning. Will continue to follow. thank you
[2017-07-19] MEDS ORDERED: ENOXAPARIN 40 MG/0.4 ML INJECTION SQ ONE (09:00)
[2017-07-19] MEDS: AMLODIPINE 10 MG TABLET PO SCH (09:28)
[2017-07-19] MEDS: FENOFIBRATE 48 MG TABLET PO SCH (09:28)
[2017-07-19] MEDS: ASPIRIN *EC* 81 MG TABLET PO SCH (09:28)
--- NOTE | 2017-07-19 11:52 | Progress Note ---
- Date 07/19/17 Subjective: Mr. Butterfield was up in a chair reading the paper when seen. Reported walking to and from the bathroom several times this morning without difficulty and that he has minimal pain. He denied dyspnea, palpitations, nausea, or lightheadedness. He reports typically taking stool softeners at home. Objective Vital signs: Temperature 97.7 F 07/19/17 11:45 Pulse Rate 72 07/19/17 11:45 Respiratory Rate 18 07/19/17 11:45 Blood Pressure 123/67 07/19/17 11:45 Pulse Oximetry 95-RA 07/19/17 11:45 NAD, alert, fluent speech EOMI, conjunctiva clear, sclera anicteric Respirations nonlabored, good airflow, breath sounds clear anteriorly/ posteriorly Irregular rhythm, S1-S2 Abdomen soft, nontender, bowel sounds present although diminished Trace edema bilateral ankles Rhythm: Atrial Fibrillation with Normal Ventricular Rate Cardiac Ectopy: Multi-Focal PVC's (occasional couplets) Height/Weight/BMI: Height 1.8 m Weight 99 kg Body Mass Index 29.2 Results - Labs CBC & Chem 7: 07/19/17 04:38 07/19/17 04:38 Labs: INR 1.21 Assessment and Plan (1) Intertrochanteric fracture of right hip Current visit: Yes Status: Acute Assessment and Plan: Impression: Right femoral neck fracture-s/p ORIF 07/18/17, Right elbow contusions/abrasions Acute kidney injury, resolved Anemia, normocytic-consistent with fracture/surgery Atrial fibrillation, chronic Multifocal PVCs Hypertension Hyperlipidemia BPH Hyperglycemia Plan: Doing well postoperatively. Hemoglobin down from 15.1 preoperatively to 11.0 currently; normal MCV. Continue to monitor. Warfarin resumed yesterday after surgery, to receive 4 mg today. Acute kidney injury has resolved, creatinine 1.9-1.4-1.1. Discontinue IV fluids and monitor. Hypernatremia noted on admission, normal today. No known to be due to reagent problem in the lab and therefore artifactual hypernatremia. Modest hyperglycemia past 3 days, A1c will be screened. Hemodynamically stable; polymorphic PVCs on telemetry with decreasing frequency compared to admission. Continues to have occasional couplets. If continues to have significant ectopy will discuss with cardiology prior to discharge-may require addition of beta willian. Scheduled Senokot ordered for bowels with when necessary MiraLAX. DVT Prophylaxis: Lovenox, Coumadin Resuscitation Status: Full Code - Physician Narrative Narrative: Date: 07/19/17 Time: 1149 Hospital Course Summary Disclaimer: The visit summary below is not to be considered part of the above Progress Note.
[2017-07-19] MEDS ORDERED: WARFARIN 4 MG TABLET PO SCH (12:00)
--- NOTE | 2017-07-19 18:06 | Orthopedic Progress Note ---
Date: Date: 07/19/17 Time: 1802 Subjective/Severity of Illness: Right hip long Gamma nail by Dr Ferreira 07/18/17. Pt seen this AM. He was up to his chair reading the paper. Minimal complaints of pain. No CP, cough or SOA. Labs look good, Dressings Okay. Orthopedic Exam Vital signs: Temperature 98.1 F 07/19/17 16:00 Pulse Rate 95 07/19/17 16:00 Respiratory Rate 18 07/19/17 16:00 Blood Pressure 125/69 07/19/17 16:00 Pulse Oximetry 92 07/19/17 16:00 - Constitutional General Appearance: Present: alert, cooperative, no acute distress - Respiratory Exam Present: non-labored - Cardiovascular Exam Present: pedal pulses intact - Extremities Exam Present: pulses intact. Absent: calf tenderness - Dressing Dressing: dry, no drainage - Integumentary Exam Present: pink, warm - Neurological Exam Present: intact to light touch, no deficits - Psychiatric Exam Present: alert, normal affect - Labs Result Diagrams: 07/19/17 04:38 07/19/17 04:38 Abnormal lab results 07/19/17 07/19/17 07/19/17 Range/Units 04:38 04:38 04:38 RBC 3.53 L (4.50-5.90) M/MM3 Hgb 11.0 L D (13.5-17.5) GM/DL Hct 33.0 L D (41-53) % Plt Count 121 L (130-400) T/MM3 Neut % (Auto) 79.7 H (33-66) % Lymph % (Auto) 10.3 L (23-45) % [place] % (Auto) 9.8 H (0-9.0) % Neut # (Auto) 8.1 H (1.8-7.7) T/MM3 [place] # (Auto) 1.0 H (0-0.8) T/MM3 INR 1.21 H (0.92-1.18) BUN 21.0 H (9-20) MG/DL Glucose 142 H (75-110) MG/DL Calcium 8.1 L (8.4-10.2) MG/DL H & H 07/18/17 07/19/17 Range/Units 04:27 04:38 Hgb 12.8 L D 11.0 L D (13.5-17.5) GM/DL Hct 37.5 L D 33.0 L D (41-53) % Coagulation 07/18/17 07/19/17 Range/Units 04:27 04:38 INR 1.71 H 1.21 H (0.92-1.18) Orthopedic Assessment and Plan (1) Intertrochanteric fracture of right hip Status: Acute Qualifiers: Encounter type: initial encounter Fracture type: closed Fracture alignment: nondisplaced Qualified Code(s): S72.144A - Nondisplaced intertrochanteric fracture of right femur, initial encounter for closed fracture Assessment and Plan: Resume Coumadin protocol for VTE prophylaxis. SCD's and early mobilization for added DVT coverage. WBAT. PT/OT services to improve independent function. Discharge Planning per Case Management. - Anticoagulation Therapy Anticoagulation: Resume home anticoagulant Hospital Course Summary Disclaimer: The visit summary below is not to be considered part of the above Progress Note.
[2017-07-19] MEDS: FINASTERIDE 5 MG TABLET PO SCH (20:48)
[2017-07-19] MEDS: ROSUVASTATIN 5 MG TABLET PO SCH (20:48)
[2017-07-19] MEDS: SENNA + DOCUSATE TABLET PO SCH (20:48)
[2017-07-20] MEDS: SALINE FLUSH 10ml SYRINGE IVF PRN ×2 (03:57→11:36)
[2017-07-20] MEDS: NOZIN NASAL SWAB NAS SCH ×3 (03:57→20:37)
[2017-07-20] MEDS: SENNA + DOCUSATE TABLET PO SCH ×2 (08:03→20:37)
[2017-07-20] MEDS: ASPIRIN *EC* 81 MG TABLET PO SCH (08:03)
[2017-07-20] MEDS: AMLODIPINE 10 MG TABLET PO SCH (08:03)
[2017-07-20] MEDS: FENOFIBRATE 48 MG TABLET PO SCH (08:03)
[2017-07-20] MEDS: POLYETHYL GLYCOL 3350 17gm PACKET PO PRN (08:05)
[2017-07-20] MEDS ORDERED: ENOXAPARIN 40 MG/0.4 ML INJECTION SQ ONE (09:15)
--- NOTE | 2017-07-20 09:17 | Pharmacy Consult ---
Pharmacy Consult-Warfarin - Laboratory Information 07/18/17 07/18/17 07/19/17 04:27 04:27 04:38 Hgb 12.8 L D 11.0 L D Hct 37.5 L D 33.0 L D INR 1.71 H 07/19/17 07/20/17 04:38 03:56 Hgb Hct INR 1.21 H 1.24 H - Consult Information Warfarin 4mg ordered for today. Lovenox 40mg x1 ordered. Target INR is 2-3. Will continue to follow. Thanks.
--- NOTE | 2017-07-20 10:38 | Orthopedic Progress Note ---
Date: Date: 07/20/17 Time: 1035 Subjective/Severity of Illness: Doing great. Pain is controlled. More painful with activity but he has been mobile into the hallway. No CP, cough or SOA. No lightheadedness, dizziness or other complaints. Orthopedic Exam Vital signs: Temperature 98.1 F 07/19/17 16:00 Pulse Rate 95 07/19/17 16:00 Respiratory Rate 18 07/19/17 16:00 Blood Pressure 125/69 07/19/17 16:00 Pulse Oximetry 92 07/19/17 16:00 - Constitutional General Appearance: Present: alert, cooperative, no acute distress - Respiratory Exam Present: non-labored - Cardiovascular Exam Present: pedal pulses intact - Extremities Exam Present: pulses intact. Absent: calf tenderness - Dressing Dressing: dry, no drainage (small drop of blood on upper two dressings, but this is dry. ) - Integumentary Exam Present: pink, warm - Neurological Exam Present: intact to light touch, no deficits - Psychiatric Exam Present: alert, normal affect - Labs Result Diagrams: 07/19/17 04:38 07/20/17 03:56 Abnormal lab results 07/20/17 07/20/17 Range/Units 03:56 03:56 INR 1.24 H (0.92-1.18) BUN 23.0 H (9-20) MG/DL Glucose 117 H (75-110) MG/DL Hemoglobin A1c 5.8 H (4.0-5.7) % H & H 07/18/17 07/19/17 Range/Units 04:27 04:38 Hgb 12.8 L D 11.0 L D (13.5-17.5) GM/DL Hct 37.5 L D 33.0 L D (41-53) % Coagulation 07/18/17 07/19/17 07/20/17 Range/Units 04:27 04:38 03:56 INR 1.71 H 1.21 H 1.24 H (0.92-1.18) Orthopedic Assessment and Plan (1) Intertrochanteric fracture of right hip Status: Acute Qualifiers: Encounter type: initial encounter Fracture type: closed Fracture alignment: nondisplaced Qualified Code(s): S72.144A - Nondisplaced intertrochanteric fracture of right femur, initial encounter for closed fracture Assessment and Plan: Resume Coumadin protocol for VTE prophylaxis. SCD's and early mobilization for added DVT coverage. WBAT. PT/OT services to improve independent function. Discharge Planning per Case Management. Hospital Course Summary Disclaimer: The visit summary below is not to be considered part of the above Progress Note.
[2017-07-20] MEDS ORDERED: WARFARIN 4 MG TABLET PO SCH (12:00)
--- NOTE | 2017-07-20 13:20 | Progress Note ---
- Date 07/20/17 Subjective: Greer reports that he feels well and has minimal pain in his hip which has not required medications. He was able to walk out and around the nursing station with therapy yesterday. He denies palpitations although telemetry continues to show frequent PVCs and occasional couplets. He denies dyspnea, nausea, or lightheadedness. He reports passing flatus although he has not yet had a bowel movement. Objective Vital signs: Temperature 97.0 F 07/20/17 11:13 Pulse Rate 86 07/20/17 11:13 Respiratory Rate 20 07/20/17 11:13 Blood Pressure 130/75 07/20/17 11:13 Pulse Oximetry 97 - RA 07/20/17 11:13 NAD, alert, fluent speech Conjunctiva clear Respirations nonlabored, good airflow, breath sounds clear anteriorly Irregular rhythm, S1-S2 Abdomen soft, nontender, bowel sounds present Mild edema right thigh without obvious bruising. Rhythm: Atrial Fibrillation with Normal Ventricular Rate Cardiac Ectopy: Multi-Focal PVC's (occasional couplets) Height/Weight/BMI: Height 1.8 m Weight 99 kg Body Mass Index 29.2 Results - Labs CBC & Chem 7: 07/19/17 04:38 07/20/17 03:56 Labs: INR 1.24 A1c 5.8 Assessment and Plan (1) Intertrochanteric fracture of right hip Current visit: Yes Status: Acute Assessment and Plan: Impression: Right femoral neck fracture-s/p ORIF 07/18/17, Right elbow contusions/abrasions Acute kidney injury, resolved Anemia, normocytic-consistent with fracture/surgery Atrial fibrillation, chronic Multifocal PVCs Hypertension Hyperlipidemia BPH Hyperglycemia Plan: Doing well postoperatively. Hemoglobin down from 15.1 preoperatively to 11.0 yesterday; recheck hemoglobin tomorrow morning. Warfarin resumed yesterday after surgery, to receive 4 mg today-patient typically alternates 2/3 mg warfarin daily so anticipate INR to climb into therapeutic range soon. Acute kidney injury has resolved, creatinine 1.9-1.4-1.1-1.0. Modest hyperglycemia earlier, fasting glucose 117 today, A1c nl. Hemodynamically stable; polymorphic PVCs on telemetry with decreasing frequency compared to admission. Continues to have occasional couplets. If continues to have significant ectopy will discuss with cardiology prior to discharge-may require addition of beta willian. Scheduled Senokot ordered for bowels with prn MiraLAX. DVT Prophylaxis: Lovenox, Coumadin Resuscitation Status: Full Code - Physician Narrative Narrative: Date: 07/20/17 Time: 1316 Hospital Course Summary Disclaimer: The visit summary below is not to be considered part of the above Progress Note.
[2017-07-20 15:39] VITALS: RESP 16
[2017-07-20] MEDS: FINASTERIDE 5 MG TABLET PO SCH (20:38)
[2017-07-20] MEDS: ROSUVASTATIN 5 MG TABLET PO SCH (20:38)
[2017-07-21] MEDS: NOZIN NASAL SWAB NAS SCH ×2 (04:07→11:28)
[2017-07-21] MEDS: SALINE FLUSH 10ml SYRINGE IVF PRN (04:07)
[2017-07-21] MEDS: FENOFIBRATE 48 MG TABLET PO SCH (08:02)
[2017-07-21] MEDS: ASPIRIN *EC* 81 MG TABLET PO SCH (08:02)
[2017-07-21] MEDS: SENNA + DOCUSATE TABLET PO SCH (08:02)
[2017-07-21] MEDS: POLYETHYL GLYCOL 3350 17gm PACKET PO PRN (08:02)
[2017-07-21] MEDS: AMLODIPINE 10 MG TABLET PO SCH (08:02)
--- NOTE | 2017-07-21 08:07 | Orthopedic Progress Note ---
Date: Date: 07/21/17 Time: 08 Subjective/Severity of Illness: Doing well. No pain at this time. No CP or breathing issues. He has been mobile with good tolerance. No concerns Orthopedic Exam Vital signs: Temperature 98.1 F 07/19/17 16:00 Pulse Rate 95 07/19/17 16:00 Respiratory Rate 18 07/19/17 16:00 Blood Pressure 125/69 07/19/17 16:00 Pulse Oximetry 92 07/19/17 16:00 - Constitutional General Appearance: Present: alert, cooperative, no acute distress - Respiratory Exam Present: non-labored - Cardiovascular Exam Present: pedal pulses intact - Extremities Exam Present: pulses intact. Absent: calf tenderness - Dressing Dressing: dry, no drainage (small drop of blood on upper two dressings, but this is dry. ) - Integumentary Exam Present: pink, warm - Neurological Exam Present: intact to light touch, no deficits - Psychiatric Exam Present: alert, normal affect - Labs Result Diagrams: 07/21/17 04:03 07/20/17 03:56 Abnormal lab results 07/21/17 07/21/17 Range/Units 04:03 04:03 Hgb 10.2 L (13.5-17.5) GM/DL Hct 30.2 L (41-53) % INR 1.34 H (0.92-1.18) H & H 07/18/17 07/19/17 07/21/17 Range/Units 04:27 04:38 04:03 Hgb 12.8 L D 11.0 L D 10.2 L (13.5-17.5) GM/DL Hct 37.5 L D 33.0 L D 30.2 L (41-53) % Coagulation 07/18/17 07/19/17 07/20/17 Range/Units 04:27 04:38 03:56 INR 1.71 H 1.21 H 1.24 H (0.92-1.18) 07/21/17 Range/Units 04:03 INR 1.34 H (0.92-1.18) Orthopedic Assessment and Plan (1) Intertrochanteric fracture of right hip Status: Acute Qualifiers: Encounter type: initial encounter Fracture type: closed Fracture alignment: nondisplaced Qualified Code(s): S72.144A - Nondisplaced intertrochanteric fracture of right femur, initial encounter for closed fracture Assessment and Plan: Resume Coumadin protocol for VTE prophylaxis. SCD's and early mobilization for added DVT coverage. WBAT. PT/OT services to improve independent function. F/U scheduled with me in 3 weeks. Discharge Planning per Case Management. - Anticoagulation Therapy Anticoagulation: Resume home anticoagulant Hospital Course Summary Disclaimer: The visit summary below is not to be considered part of the above Progress Note.
--- NOTE | 2017-07-21 09:06 | Progress Note ---
- Date 07/21/17 Subjective: Patient seen following breakfast. Reports he is doing well. Still can't get out of chair on his own and requires quite a bit of assistance. Hoping to go to IRU, but case management has indicated his insurance won't cover. Appetite is good. Has a lot of swelling in the R leg which he feels limits his movements. NO CP, SOA, n/v, f/c. Objective Vital signs: Temperature 98.3 F 07/21/17 07:27 Pulse Rate 101 H 07/21/17 07:35 Respiratory Rate 16 07/21/17 07:27 Blood Pressure 133/82 07/21/17 07:27 Pulse Oximetry 93 07/21/17 07:27 Rhythm: Atrial Fibrillation with Normal Ventricular Rate Cardiac Ectopy: Multi-Focal PVC's (occasional couplets) Height/Weight/BMI: Height 1.8 m Weight 96.5 kg Body Mass Index 29.2 - Constitutional Present: no acute distress, well nourished, well developed - Routine HEENT Exam Head: Present: normocephalic, atraumatic - Routine Respiratory Exam Present: CTA bilaterally. Absent: wheezes - Routine Cardiovascular Exam Present: no murmur - Routine Abdominal Exam Present: soft, non distended, non tender - Routine Extremities Exam Present: edema (moderate edema to the R thigh. Dressings intact with minimal blood showing through dressing.), normal capillary refill - Routine Skin Exam Present: dry, warm - Routine Neurological Exam Present: alert, oriented X3 - Routine Lymphatic Exam Lymphatic: Absent: adenopathy - Routine Psychiatric Exam Present: normal affect, cooperative Results - Labs CBC & Chem 7: 07/21/17 04:03 07/20/17 03:56 Assessment and Plan (1) Intertrochanteric fracture of right hip Current visit: Yes Status: Acute Assessment and Plan: Impression: Right femoral neck fracture-s/p ORIF 07/18/17, Right elbow contusions/abrasions - healing Acute kidney injury, resolved Anemia, normocytic-consistent with fracture/surgery Atrial fibrillation, chronic Multifocal PVCs Hypertension Hyperlipidemia BPH Hyperglycemia Plan: Doing well postoperatively. Hoped to go to IRU, but due to insurance, will go to [facility] at [facility]. Ultimate goal is to return home with . Hemoglobin down from 15.1 preoperatively to 11.0 on the 9th to 10.2 today. Warfarin resumed 07/18/17 following surgery. Patient typically alternates 2/3 mg warfarin daily. Not yet therapeutic w/ INR 1.34 today. Hemodynamically stable; chronic a-fib. Discharge likely today or tomorrow. DVT Prophylaxis: Lovenox, Coumadin Resuscitation Status: Full Code - Physician Narrative Physician: Marguerite Lr MD Narrative: Date: 07/21/17 Time: 1125 I have independently evaluated and examined this patient. I reviewed the chart, the patient's history, and the DISTRIBUTION WAREHOUSE MANAGER/PA's documented findings as above. We discussed and formulated the assessment and plan as above with additions as below: Mr. Butterfield continues to report that he feels well; he was just walking back to the room as I arrived and indicated he has 2-3/10 pain in his hip and that it 's never any worse than this. He is having stools and denies dyspnea. Respirations nonlabored, irregular cardiac rhythm, S1-S2 Telemetry with atrial fibrillation-controlled rate, frequent PVCs. Hemoglobin unlikely to drop significantly after 3 days postop but will need to be monitored intermittently. 4 mg warfarin again today. Plan discharge to [facility] when insurance authorization available. Hospital Course Summary Disclaimer: The visit summary below is not to be considered part of the above Progress Note. Hospital Course: 07/18/17 - Op Day Medically cleared for sx - hx of a-fib and anticoagulation presents at least mild-mod risk. ORIF by Dr Ferreira today. Monitor hgb Cont IVF for KOBE and hypernatremia which are improving. Resume home meds & Coumadin postop - pharm consult Full code 07/19/17 - POD#1 Hemoglobin down from 15.1 preoperatively to 11.0 currently; normal MCV. Warfarin resumed yesterday after surgery, to receive 4 mg today. Hemodynamically stable; polymorphic PVCs on telemetry with decreasing frequency compared to admission. Continues to have occasional couplets. 07/20/17 POD#2 Warfarin resumed yesterday after surgery, to receive 4 mg today-patient typically alternates 2/3 mg warfarin daily so anticipate INR to climb into therapeutic range soon. Acute kidney injury has resolved, creatinine 1.9-1.4-1.1-1.0. Modest hyperglycemia earlier, fasting glucose 117 today, A1c nl. 07/21/17 POD#3 Doing well postoperatively. Hoped to go to IRU, but due to insurance, will go to [facility] at [facility]. Ultimate goal is to return home with . Hemoglobin down from 15.1 preoperatively to 11.0 on the 9th to 10.2 today. Warfarin resumed 07/18/17 following surgery. Patient typically alternates 2/3 mg warfarin daily. Not yet therapeutic w/ INR 1.34 today. Hemodynamically stable; chronic a-fib. Discharge likely today or tomorrow.
--- NOTE | 2017-07-21 09:56 | Pharmacy Consult ---
Pharmacy Consult-Warfarin - Laboratory Information 07/18/17 07/18/17 07/19/17 04:27 04:27 04:38 Hgb 12.8 L D 11.0 L D Hct 37.5 L D 33.0 L D INR 1.71 H 07/19/17 07/20/17 07/21/17 04:38 03:56 04:03 Hgb Hct INR 1.21 H 1.24 H 1.34 H 07/21/17 04:03 Hgb 10.2 L Hct 30.2 L INR - Consult Information 81 y.o. Male with history of a. fib. and chronic anticoagulation with warfarin admitted with hip fracture. Home warfarin dose= alternating 2 mg and 3 mg dose. Goal INR = 2.0 to 3.0. INR was subtherapeutic upon admission at 1.85 however, Vitamin K 5 mg po x1 dose was given to normalize INR for surgery. date INR dose 07/18 1.71 4 mg 07/19 1.21 4 mg 07/20 1.24 4 mg 07/21 1.34 plan: 4 mg INR is subtherapeutic today. The Vitamin K dose pre-op is likely still affecting the INR. Will give Warfarin 4 mg po x 1 dose today. Hospitalist contacted and No Lovenox to be given today per TClaude rGace P.A. Pharmacy will monitor and adjust as needed. Thank you, Sunita Vazquez [facility]
[2017-07-21] MEDS ORDERED: ENOXAPARIN 40 MG/0.4 ML INJECTION SQ SCH (10:15)
--- NOTE | 2017-07-21 10:53 | Extended Care Facility Orders ---
<Aide Grace - Last Filed: 07/21/17 14:01> Admission Orders Admit to:: Custodial Allergies/Adverse Reactions: Allergies ezetimibe Allergy (Unknown, Verified 07/17/17 18:05) simvastatin Allergy (Unknown, Verified 07/17/17 18:05) Admitting Diagnosis: Hip fracture Admitting Physician: Marguerite Lr MD Attending Physician: Marguerite Lr MD Code Status: Full Code Anticiapted Length of Stay: 30 days or less Rehab Potential: good Rehab Prognosis: good Diet: 07/18/17 Lunch Regular Diet [DIET] Diet Modifications: Wound/Incision Care: keep clean and dry. Change dressings as needed. May remove dressings after 08/03/17. May use Facility Protocol or Standing Orders: Yes May have flu vaccine: Yes Evaluations/Treatment: PT, OT Custodial Certification: I certify that SNF services are required to be given on an Inpatient basis because of the patients need for senior care care on a continuing basis for the condition(s) for which he/she received inpatient hospital services prior to his/her transfer to the SNF. SNF inpatient care is necessary for the following reasons Indication for Custodial: Wound Care/Assessment, Assess Anticoagulation Therapy, Other (PT/OT) - Additional Information In Event of Arrest: Start CPR,call 911,send patient to the ER Resident is Aware of Diagnosis: Yes Laboratory/Radiology: needs daily INR (protimes) until INR is 2 (or as directed by PCP) needs CBC on 07/22 to follow hemoglobin Referrals: Jerod Frazier PA [Physician Certified Legal Secretary Specialist] - 08/06/17 10:00 am Asa Dejesus MD [Primary Care Provider] - 1 Week Additional Orders: DC lovenox when INR is 2 or greater. Continue coumadin at 4mg daily and adjust as ordered per PCP based on protime results. <Marguerite Lr - Last Filed: 07/21/17 14:07> Admission Orders Admitting Diagnosis: Hip fracture Admitting Physician: Marguerite Lr MD Attending Physician: Marguerite Lr MD Code Status: Full Code Diet: 07/18/17 Lunch Regular Diet [DIET] Diet Modifications: Custodial Certification: I certify that SNF services are required to be given on an Inpatient basis because of the patients need for senior care care on a continuing basis for the condition(s) for which he/she received inpatient hospital services prior to his/her transfer to the SNF. SNF inpatient care is necessary for the following reasons - Additional Information Additional Orders: Dx for INR - I48.2. Dx for CBC - D42
[2017-07-21 11:32] VITALS: BP 106/65; PULSE 71; TEMP 97.1; O2SAT 94
[2017-07-21] MEDS ORDERED: WARFARIN 4 MG TABLET PO SCH (12:00)
--- NOTE | 2017-09-20 18:57 | Discharge Summary ---
Discharge Information Date of admission: 07/17/17 19:34 Anticipated date of discharge: 07/21/17 Attending Physician: Marguerite Lr MD Primary care physician: Asa Dejesus MD Consults: Consulting Provider: Rocky Ferreira Reason For Exam: right intertrochanteric hip fracture - Discharge Diagnosis (1) Intertrochanteric fracture of right hip Status: Acute Problems Reviewed?: Yes Right femoral neck fracture-s/p ORIF 07/18/17 Right elbow contusions/abrasions - healing Acute kidney injury, resolved Anemia, normocytic-consistent with fracture/surgery Atrial fibrillation, chronic Multifocal PVCs Hypertension Hyperlipidemia BPH Hyperglycemia - Procedures Procedures: Fixation of intertrochanteric hip fracture with cephalomedullary device on - Laboratory Labs: Admission hemoglobin 15.1 on 07/17/17. Chemistries on admission notable for sodium 147, BUN 23, creatinine 1.9. A1c 5.8 on 07/20/17. 07/21/17 04:03 07/20/17 03:56 - Radiology Radiology: X-ray of the pelvis with 2 views of the right hip on 07/17/17: Mildly comminuted and displaced intertrochanteric right femoral fracture with foreshortening. No additional acute fracture or dislocation seen. Impression: Closed posttraumatic right femoral neck fracture. ----- Portable chest x-ray on 07/17/17: No acute cardiopulmonary disease. Tortuous ectatic thoracic aorta and borderline cardiomegaly. History of Present Illness HPI: 81 M presents to the [facility] emergency department tonight after missing the last step while ambulating down a flight of stairs. He landed on his right hip and was brought to the ER for further evaluation. Unfortunately, he has sustained a right intertrochanteric hip fracture. EKG and CXR done in the ER. He takes coumadin with a history of a fib. He has held his dose for the last 3 days as an outpatient check was apparently high. His INR is actually subtherapeutic tonight at 1.89. At orthopedist's request, he will receive a dose of vitamin K with the anticipation of going to the OR tomorrow for surgical intervention Objective Vital signs: Temperature 97.1 F 07/21/17 11:32 Pulse Rate 71 07/21/17 11:32 Respiratory Rate 16 07/21/17 11:32 Blood Pressure 106/65 07/21/17 11:32 Pulse Oximetry 94 07/21/17 11:32 Respirations nonlabored, irregular cardiac rhythm, S1-S2 Rhythm: Atrial Fibrillation with Normal Ventricular Rate Cardiac Ectopy: Multi-Focal PVC's (occasional couplets) Height/Weight/BMI: Height 1.8 m Weight 96.5 kg Body Mass Index 29.2 Hospital Course This is a general summary of the patient's hospital course. For more details refer to the complete medical record. Hospital course: 07/18/17 - Op Day Patient presented after a fall resulting in right hip fracture. Medically cleared for sx - hx of a-fib and anticoagulation presents at least mild-mod risk. ORIF by Dr Ferreira today. Cont IVF for KOBE and hypernatremia which are improving. Sodium 147 and creatinine 1.9 on admission. Resume home meds & Coumadin postop - pharm consult Full code 07/19/17 - POD#1 Hemoglobin down from 15.1 preoperatively to 11.0 currently; normal MCV. Warfarin resumed yesterday after surgery, to receive 4 mg today. Hemodynamically stable; polymorphic PVCs on telemetry with decreasing frequency compared to admission. Continues to have occasional couplets. 07/20/17 POD#2 Warfarin resumed yesterday after surgery, to receive 4 mg today-patient typically alternates 2/3 mg warfarin daily so anticipate INR to climb into therapeutic range soon. Acute kidney injury has resolved, creatinine 1.9-1.4-1.1-1.0. Modest hyperglycemia earlier, fasting glucose 117 today, A1c nl. 07/21/17 POD#3 Doing well postoperatively. Hoped to go to IRU, but due to insurance, will go to [facility] at [facility]. Ultimate goal is to return home with . Walking well with pain limited to 2-3/10 in his hip. No dyspnea; bowels working adequately. Hemoglobin down from 15.1 preoperatively to 10.2 today. Warfarin resumed 07/18/17 following surgery. Patient typically alternates 2/3 mg warfarin daily. Not yet therapeutic w/ INR 1.34 today. Hemodynamically stable; chronic a-fib. Accepted for admission to [facility], transferred there later in the afternoon. Discharge Plan - Discharge Disposition Discharge Date: 07/21/17 Disposition: 03 To SNU Not [facility] (SNF) *Condition: Stable Reason For Visit (Visit label in EMR): Hip fracture - Discharge Medications *Discharge Medications: New Acetaminophen [Tylenol 8 Hour] 650 mg PO Q4HR PRN #30 tablet.er PRN Reason: Pain Continue Finasteride [Proscar] 5 mg PO HS Rosuvastatin [Crestor] 5 mg PO HS Fenofibrate Nanocrystallized [Fenofibrate] 48 mg PO DAILY Amlodipine [Norvasc] 10 mg PO DAILY Aspirin [Adult Low Dose Aspirin EC] 81 mg PO DAILY Discontinued Warfarin [Coumadin] 3 mg PO .QOD Warfarin [Coumadin] 2 mg PO .QOD No Action warfarin 3 mg tablet 3 mg PO .M,T,Th,S,S tab warfarin 4 mg tablet 4 mg PO 2XW - Discharge Packet/Instructions *Diet: regular diet *Activity: per PT/OT *Pain Management/Treatment: acetaminophen prn *Wound Care: keep clean and dry. Change dressings as needed. May remove dressings after 08/03/17. Additional Instructions: You will take coumadin 4mg daily and have daily protimes (INR) until your INR is within normal range. You will be on lovenox ( blood thinner injection) until your protime is above 2. You need repeat CBC to follow your hemoglobin tomorrow. *Expected Signs/Symptoms: continued improvement in strength and mobility *Notify Physician if: you develop fever or redness at incision sites *During Business Hours Contact: your nurse at [facility] *After Business Hours Contact: your nurse at [facility] *Pending Lab/Results: No Pending Lab - Referrals/Follow Up *Referrals/Follow Up: Asa Dejesus MD [Primary Care Provider] - 1 Week Jerod Frazier PA [Physician Development Analyst] - 08/06/17 10:00 am - Patient Handouts Patient Handouts: [facility] Ortho Fracture Instructions, [facility] Ortho Postop Instructions - Dismissal Complete Discharge Instructions are:: Complete Physician Narrative - Narrative Attestation Narrative: Date: 09/20/17 Time: 1853
== END 2017-07-21 15:32 | DRG 481 ==
LOC: ED 17:43 → SUATTDRO 19:34 → EDHOLD 19:34 → SRG 20:15
PROVIDERS: ADMIT Hospitalist; ATTEND Internal Medicine